=== PATIENT | female | born 1975 | race Caucasian/White ===

== ENCOUNTER → 2016-08-05 | Outpatient (REF) | payer OTHER | LOC: M LAB REF 12:06 | PROVIDERS: ATTEND Physician Assistant | DX: J02.9 Acute pharyngitis, unspecified (principal) ==

== ENCOUNTER 2016-08-07 20:58 | Emergency (ER) | payer OTHER ==
[2016-08-07] MEDS ORDERED: IBUPROFEN 800 MG TAB As Ordered ONE (23:11)
--- NOTE | 2016-08-07 23:25 | EDDOCDS ---
Nurse's Notes [facility] Name: Danielle Alvarez Age: 41 yrs Sex: Female : 1975 Arrival Date: 08/07/2016 Time: 20:58 Bed Triage 1 Private MD: Cheyenne Couch M. Diagnosis: Acute lymphadenitis of face, head and neck-anterior cervical likely due to viral infection Presentation: 08/07 21:13 Presenting complaint: Patient states: Has had severe anterior neck pain bilaterally jo3 that radiates to ears. went to in [place] 2 days ago and had negative strep screen. Adult Sepsis Screening: The patient does not have new or worsening altered mentation. Patient's respiratory rate is less than 22. Systolic blood pressure is greater than 100. Patient has a qSOFA score of 0- Negative Sepsis Screen. Suicide/Homicide risk assessment- the patient denies having any suicidal and/or homicidal ideations and does not present with any other emotional, behavioral or mental health complaints. Status: Patient is not a data services developer or dependent. Transition of care: patient was not received from another setting of care. 21:13 Acuity: MARYAM Level 3 jo3 21:13 Method Of Arrival: Walkin/Carried/Asstd jo3 Triage Assessment: 21:21 General: Appears in no apparent distress, comfortable, Behavior is appropriate for age, jo3 cooperative. Pain: Pain currently is 6 out of 10 on a pain scale. HIV screening NA for this visit Offered previously. Neurological: Level of Consciousness is awake, alert, Oriented to person, place, time. Derm: Skin is pink, warm & dry. 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 Astepro 0.15 % (205.5 mcg) nasal spry 2 sprays 2 times per day 2. Flonase 50 mcg/actuation Nasal spsn 2 sprays once daily 3. Arnuity Ellipta 100 mcg/actuation inhalation dsdv 1 puff once daily 4. meclizine 25 mg Oral tab 3 times per day as needed 5. naproxen 500 mg Oral tab 1 tab 2 times per day as needed, last dose more than a week go 6. Tylenol 500 mg Oral 2 tabs every 4-6 hours as needed 7. albuterol inhaler HFA - PMHx: Hypertension; Migraine Headaches; Seasonal Allergies; Vertigo; - PSHx: Cesearean Section; Knee surgery- Right; Tubal ligation; Cholecystectomy; - Social history: Smoking status: Patient states former smoker of tobacco. No barriers to communication noted, The patient speaks fluent Gambian, Speaks appropriately for age. - Family history: Not pertinent. - : The pt / caregiver states he / she is not on anticoagulants. Home medication list is obtained from the patient. - Exposure Risk Screening:: None identified. Screenin:19 Screening information is obtained from the patient. Fall risk: No risks identified. lf1 Assistance ADL's: requires no assistance with activities of daily living. Abuse/DV Screen: The patient / caregiver reports he/she is: not in a situation that causes fear, pain or injury. Nutritional screening: No deficits noted. Advance Directives: Currently, there is no health care proxy. home support is adequate. Assessment: 22:19 Adult Sepsis Screening: The patient does not have new or worsening altered mentation. lf1 Patient's respiratory rate is less than 22. Systolic blood pressure is greater than 100. Patient has a qSOFA score of 0- Negative Sepsis Screen. General: Appears in no apparent distress. General: Pt says she was seen in the Urgent Care in [place] and was not given a diagnosis or discharge instructions. Rapid strep was negative. . Pain: Location: right jaw and left jaw into neck and ears Pain currently is 5 out of 10 on a pain scale. Pain radiates to right ear and left ear Pain began 2-3 days ago. Neurological: Reports headache. EENT: Reports pain when swallowing. Respiratory: Respiratory effort is even, unlabored. GI: Denies nausea, vomiting. Derm: Skin is normal. 23:22 Reassessment: Patient appears in no apparent distress at this time. General: Appears in jo3 no apparent distress, comfortable, Behavior is appropriate for age, cooperative. Neurological: Level of Consciousness is awake, alert, Oriented to person, place, time. Vital Signs: 20:59 BP 147 / 90; Pulse 75; Resp 18 S; Temp 98.3(O); Pulse Ox 96% on R/A; Weight 118.84 kg gr2 (R); Height 5 ft. 4 in. (162.56 cm) (R); Pain 6/10; 23:22 BP 145 / 92; Pulse 74; Resp 18; Temp 99.2; Pulse Ox 98% on R/A; jo3 20:59 Body Mass Index 44.97 (118.84 kg, 162.56 cm) gr2 Vitals: 20:59 Log In Time: August 07, 2016 at 20:59. gr2 ED Course: 20:59 Patient visited by Tushar Lebron. gr2 20:59 Cheyenne Couch is Private Physician. gr2 20:59 Patient moved to Waiting gr2 21:00 Patient visited by Tushar Lebron. gr2 21:00 Patient moved to Pre RCE gr2 21:16 Triage Initiated jo3 21:22 Patient visited by Ghazala Matute RN. jo3 22:19 Patient visited by Maribell Marrero,SALTY. lf1 22:19 Patient moved to Triage 1 jf3 22:23 Patient visited by Maribell Marrero RN. lf1 22:32 Edgar Be PA-C is PHCP. ar2 22:32 Suresh Ventura DO is Attending Physician. ar2 22:32 Patient visited by Edgar Be PA-C. ar2 22:49 [facility] Payment Agreement was scanned into [employer] and attached to record. gjb 22:50 Cheyenne Couch is Referral Physician. ar2 23:01 Patient visited by Edgar Be PA-C. ar2 23:14 Patient visited by Maribell Marrero RN. lf1 23:22 The patient / caregiver is instructed regarding the plan of care and ED course. jo3 23:22 No IV's were initiated during this patient's visit. No procedures done that require jo3 assistance. Administered Medications: 23:13 Drug: Ibuprofen 800 mg [ibuprofen 800 mg tablet (1 tabs)] Route: PO; lf1 Order Results: There are currently no results for this order. Outcome: 22:51 Discharge ordered by Provider. ar2 23:22 Discharge Assessment: Patient awake, alert and oriented x 3. No cognitive and/or jo3 functional deficits noted. Patient verbalized understanding of disposition instructions. patient administered narcotics - no. The following High Risk Discharge criteria are identified: None. Discharged to home ambulatory. Condition: stable. Discharge instructions given to patient, Instructed on discharge instructions, follow up and referral plans. medication usage, Demonstrated understanding of instructions, medications, Pt was receptive of discharge instructions/ teaching. Prescriptions given X 1. No special radiology studies were completed. Property sent home with patient. 23:24 Patient left the ED. jo3 Signatures: Ghazala MatuteRN RN jo3 Maribell Marrero RN RN lf1 Edgar Be, CARINA PA-Paty ar2 Tushar Lebron gr2 David Sandra RN RN jf3 Qing Powers JAMAAL
--- NOTE | 2016-08-07 23:25 | EDDOCDS ---
Physician Documentation [facility] Name: Danielle Alvarez Age: 41 yrs Sex: Female : 1975 Arrival Date: 08/07/2016 Time: 20:58 Bed Triage 1 Private MD: Cheyenne Couch M. Disposition: 08/07/16 22:51 Discharged to Home/Self Care. Impression: Acute lymphadenitis of face, head and neck - anterior cervical likely due to viral infection. - Condition is Stable. - Discharge Instructions: Lymphadenopathy. - Prescriptions for Ibuprofen 800 mg Oral Tablet - take 1 tablet by ORAL route every 8 hours As needed take with food; 30 tablet. - Medication Reconciliation, Local Pharmacy Hours, Work Release Form - 2 day form. - Follow up: Cheyenne Couch; When: 4 - 5 days; Reason: Recheck today's complaints. Follow up: Emergency Department; When: As needed; Reason: Fever > 102F, Trouble breathing, Worsening of conditions, muffled voice, trouble swallowing. - Problem is new. - Symptoms are unchanged. Historical: - Allergies: Amoxicillin (Vomit); Augmentin (Upset stomach); Macrobid (Hives); - Home Meds: 1. Astepro 0.15 % (205.5 mcg) nasal spry 2 sprays 2 times per day 2. Flonase 50 mcg/actuation Nasal spsn 2 sprays once daily 3. Arnuity Ellipta 100 mcg/actuation inhalation dsdv 1 puff once daily 4. meclizine 25 mg Oral tab 3 times per day as needed 5. naproxen 500 mg Oral tab 1 tab 2 times per day as needed, last dose more than a week go 6. Tylenol 500 mg Oral 2 tabs every 4-6 hours as needed 7. albuterol inhaler HFA - PMHx: Hypertension; Migraine Headaches; Seasonal Allergies; Vertigo; - PSHx: Cesearean Section; Knee surgery- Right; Tubal ligation; Cholecystectomy; - Social history: Smoking status: Patient states former smoker of tobacco. No barriers to communication noted, The patient speaks fluent Polish, Speaks appropriately for age. - Family history: Not pertinent. - : The pt / caregiver states he / she is not on anticoagulants. Home medication list is obtained from the patient. - Exposure Risk Screening:: None identified. 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 4 in. (162.56 cm) (R); Pain 6/10; 23:22 BP 145 / 92; Pulse 74; Resp 18; Temp 99.2; Pulse Ox 98% on R/A; jo3 20:59 Body Mass Index 44.97 (118.84 kg, 162.56 cm) gr2 MDM: 22:43 Financial registration complete. gjb 22:49 [facility] Payment Agreement was scanned into [employer] and attached to record. gjb 22:50 Ibuprofen 800 mg PO once ordered. ar2 Administered Medications: 23:13 Drug: Ibuprofen 800 mg [ibuprofen 800 mg tablet (1 tabs)] Route: PO; lf1 Signatures: Ghazala Matute RN RN jo3 Maribell Marrero RN RN lf1 Edgar Be PA-C PATami ar2 Qing Powers The chart was reviewed and I authenticate all verbal orders and agree with the evaluation and treatment provided.Attachments: 22:49 [facility] Payment Agreement gjb MTDD
--- NOTE | 2016-08-10 00:25 | EDDOCDS ---
Physician Documentation [facility] Name: Danielle Alvarez Age: 41 yrs Sex: Female : 1975 Arrival Date: 08/07/2016 Time: 20:58 Bed Triage 1 Private MD: Cheyenne Couch M. Disposition: 08/07/16 22:51 Discharged to Home/Self Care. Impression: Acute lymphadenitis of face, head and neck - anterior cervical likely due to viral infection. - Condition is Stable. - Discharge Instructions: Lymphadenopathy. - Prescriptions for Ibuprofen 800 mg Oral Tablet - take 1 tablet by ORAL route every 8 hours As needed take with food; 30 tablet. - Medication Reconciliation, Local Pharmacy Hours, Work Release Form - 2 day form. - Follow up: Cheyenne Couch; When: 4 - 5 days; Reason: Recheck today's complaints. Follow up: Emergency Department; When: As needed; Reason: Fever > 102F, Trouble breathing, Worsening of conditions, muffled voice, trouble swallowing. - Problem is new. - Symptoms are unchanged. Historical: - Allergies: Amoxicillin (Vomit); Augmentin (Upset stomach); Macrobid (Hives); - Home Meds: 1. Astepro 0.15 % (205.5 mcg) nasal spry 2 sprays 2 times per day 2. Flonase 50 mcg/actuation Nasal spsn 2 sprays once daily 3. Arnuity Ellipta 100 mcg/actuation inhalation dsdv 1 puff once daily 4. meclizine 25 mg Oral tab 3 times per day as needed 5. naproxen 500 mg Oral tab 1 tab 2 times per day as needed, last dose more than a week go 6. Tylenol 500 mg Oral 2 tabs every 4-6 hours as needed 7. albuterol inhaler HFA - PMHx: Hypertension; Migraine Headaches; Seasonal Allergies; Vertigo; - PSHx: Cesearean Section; Knee surgery- Right; Tubal ligation; Cholecystectomy; - Social history: Smoking status: Patient states former smoker of tobacco. No barriers to communication noted, The patient speaks fluent Bolivian, Speaks appropriately for age. - Family history: Not pertinent. - : The pt / caregiver states he / she is not on anticoagulants. Home medication list is obtained from the patient. - Exposure Risk Screening:: None identified. 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 4 in. (162.56 cm) (R); Pain 6/10; 23:22 BP 145 / 92; Pulse 74; Resp 18; Temp 99.2; Pulse Ox 98% on R/A; jo3 20:59 Body Mass Index 44.97 (118.84 kg, 162.56 cm) gr2 MDM: 22:43 Financial registration complete. gjb 22:49 [facility] Payment Agreement was scanned into [employer] and attached to record. gjb 22:50 Ibuprofen 800 mg PO once ordered. ar2 08/08 12:56 T-Sheet-- Draft Copy was scanned into [employer] and attached to record. gb Administered Medications: 08/07 23:13 Drug: Ibuprofen 800 mg [ibuprofen 800 mg tablet (1 tabs)] Route: PO; lf1 Signatures: Myrna Rivas, Reg Reg gb Ghazala Matute RN RN jo3 Maribell MarreroRN RN lf1 Edgar Be PA-C PA-C ar2 Qing Powers The chart was reviewed and I authenticate all verbal orders and agree with the evaluation and treatment provided.Attachments: 22:49 [facility] Payment Agreement b 08/08 12:56 T-Sheet-- Draft Copy gb Chart Complete MTDD
--- NOTE | 2016-08-10 00:25 | EDDOCDS ---
Physician Documentation [facility] Name: Danielle Alvarez Age: 41 yrs Sex: Female : 1975 Arrival Date: 08/07/2016 Time: 20:58 Bed Triage 1 Private MD: Cheyenne Couch M. Disposition: 08/07/16 22:51 Discharged to Home/Self Care. Impression: Acute lymphadenitis of face, head and neck - anterior cervical likely due to viral infection. - Condition is Stable. - Discharge Instructions: Lymphadenopathy. - Prescriptions for Ibuprofen 800 mg Oral Tablet - take 1 tablet by ORAL route every 8 hours As needed take with food; 30 tablet. - Medication Reconciliation, Local Pharmacy Hours, Work Release Form - 2 day form. - Follow up: Cheyenne Couch; When: 4 - 5 days; Reason: Recheck today's complaints. Follow up: Emergency Department; When: As needed; Reason: Fever > 102F, Trouble breathing, Worsening of conditions, muffled voice, trouble swallowing. - Problem is new. - Symptoms are unchanged. Historical: - Allergies: Amoxicillin (Vomit); Augmentin (Upset stomach); Macrobid (Hives); - Home Meds: 1. Astepro 0.15 % (205.5 mcg) nasal spry 2 sprays 2 times per day 2. Flonase 50 mcg/actuation Nasal spsn 2 sprays once daily 3. Arnuity Ellipta 100 mcg/actuation inhalation dsdv 1 puff once daily 4. meclizine 25 mg Oral tab 3 times per day as needed 5. naproxen 500 mg Oral tab 1 tab 2 times per day as needed, last dose more than a week go 6. Tylenol 500 mg Oral 2 tabs every 4-6 hours as needed 7. albuterol inhaler HFA - PMHx: Hypertension; Migraine Headaches; Seasonal Allergies; Vertigo; - PSHx: Cesearean Section; Knee surgery- Right; Tubal ligation; Cholecystectomy; - Social history: Smoking status: Patient states former smoker of tobacco. No barriers to communication noted, The patient speaks fluent Brazilian, Speaks appropriately for age. - Family history: Not pertinent. - : The pt / caregiver states he / she is not on anticoagulants. Home medication list is obtained from the patient. - Exposure Risk Screening:: None identified. 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 4 in. (162.56 cm) (R); Pain 6/10; 23:22 BP 145 / 92; Pulse 74; Resp 18; Temp 99.2; Pulse Ox 98% on R/A; jo3 20:59 Body Mass Index 44.97 (118.84 kg, 162.56 cm) gr2 MDM: 22:43 Financial registration complete. gjb 22:49 [facility] Payment Agreement was scanned into [employer] and attached to record. gjb 22:50 Ibuprofen 800 mg PO once ordered. ar2 08/08 12:56 T-Sheet-- Draft Copy was scanned into [employer] and attached to record. gb Administered Medications: 08/07 23:13 Drug: Ibuprofen 800 mg [ibuprofen 800 mg tablet (1 tabs)] Route: PO; lf1 Signatures: Myrna Rivas, Reg Reg gb Ghazala Matute RN RN jo3 Maribell MarreroRN RN lf1 Edgar Be PA-C PA-C ar2 Qing Powers The chart was reviewed and I authenticate all verbal orders and agree with the evaluation and treatment provided.Attachments: 22:49 [facility] Payment Agreement b 08/08 12:56 T-Sheet-- Draft Copy gb Chart Complete MTDD
--- NOTE | 2016-08-10 00:25 | EDDOCDS ---
Nurse's Notes [facility] Name: Danielle Alvarez Age: 41 yrs Sex: Female : 1975 Arrival Date: 08/07/2016 Time: 20:58 Bed Triage 1 Private MD: Cheyenne Couch M. Diagnosis: Acute lymphadenitis of face, head and neck-anterior cervical likely due to viral infection Presentation: 08/07 21:13 Presenting complaint: Patient states: Has had severe anterior neck pain bilaterally jo3 that radiates to ears. went to in [place] 2 days ago and had negative strep screen. Adult Sepsis Screening: The patient does not have new or worsening altered mentation. Patient's respiratory rate is less than 22. Systolic blood pressure is greater than 100. Patient has a qSOFA score of 0- Negative Sepsis Screen. Suicide/Homicide risk assessment- the patient denies having any suicidal and/or homicidal ideations and does not present with any other emotional, behavioral or mental health complaints. Status: Patient is not a service liaison representative or dependent. Transition of care: patient was not received from another setting of care. 21:13 Acuity: MARYAM Level 3 jo3 21:13 Method Of Arrival: Walkin/Carried/Asstd jo3 Triage Assessment: 21:21 General: Appears in no apparent distress, comfortable, Behavior is appropriate for age, jo3 cooperative. Pain: Pain currently is 6 out of 10 on a pain scale. HIV screening NA for this visit Offered previously. Neurological: Level of Consciousness is awake, alert, Oriented to person, place, time. Derm: Skin is pink, warm & dry. 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 Astepro 0.15 % (205.5 mcg) nasal spry 2 sprays 2 times per day 2. Flonase 50 mcg/actuation Nasal spsn 2 sprays once daily 3. Arnuity Ellipta 100 mcg/actuation inhalation dsdv 1 puff once daily 4. meclizine 25 mg Oral tab 3 times per day as needed 5. naproxen 500 mg Oral tab 1 tab 2 times per day as needed, last dose more than a week go 6. Tylenol 500 mg Oral 2 tabs every 4-6 hours as needed 7. albuterol inhaler HFA - PMHx: Hypertension; Migraine Headaches; Seasonal Allergies; Vertigo; - PSHx: Cesearean Section; Knee surgery- Right; Tubal ligation; Cholecystectomy; - Social history: Smoking status: Patient states former smoker of tobacco. No barriers to communication noted, The patient speaks fluent Kazakh, Speaks appropriately for age. - Family history: Not pertinent. - : The pt / caregiver states he / she is not on anticoagulants. Home medication list is obtained from the patient. - Exposure Risk Screening:: None identified. Screenin:19 Screening information is obtained from the patient. Fall risk: No risks identified. lf1 Assistance ADL's: requires no assistance with activities of daily living. Abuse/DV Screen: The patient / caregiver reports he/she is: not in a situation that causes fear, pain or injury. Nutritional screening: No deficits noted. Advance Directives: Currently, there is no health care proxy. home support is adequate. Assessment: 22:19 Adult Sepsis Screening: The patient does not have new or worsening altered mentation. lf1 Patient's respiratory rate is less than 22. Systolic blood pressure is greater than 100. Patient has a qSOFA score of 0- Negative Sepsis Screen. General: Appears in no apparent distress. General: Pt says she was seen in the Urgent Care in [place] and was not given a diagnosis or discharge instructions. Rapid strep was negative. . Pain: Location: right jaw and left jaw into neck and ears Pain currently is 5 out of 10 on a pain scale. Pain radiates to right ear and left ear Pain began 2-3 days ago. Neurological: Reports headache. EENT: Reports pain when swallowing. Respiratory: Respiratory effort is even, unlabored. GI: Denies nausea, vomiting. Derm: Skin is normal. 23:22 Reassessment: Patient appears in no apparent distress at this time. General: Appears in jo3 no apparent distress, comfortable, Behavior is appropriate for age, cooperative. Neurological: Level of Consciousness is awake, alert, Oriented to person, place, time. Vital Signs: 20:59 BP 147 / 90; Pulse 75; Resp 18 S; Temp 98.3(O); Pulse Ox 96% on R/A; Weight 118.84 kg gr2 (R); Height 5 ft. 4 in. (162.56 cm) (R); Pain 6/10; 23:22 BP 145 / 92; Pulse 74; Resp 18; Temp 99.2; Pulse Ox 98% on R/A; jo3 20:59 Body Mass Index 44.97 (118.84 kg, 162.56 cm) gr2 Vitals: 20:59 Log In Time: August 07, 2016 at 20:59. gr2 ED Course: 20:59 Patient visited by Tushar Lebron. gr2 20:59 Cheyenne Couch is Private Physician. gr2 20:59 Patient moved to Waiting gr2 21:00 Patient visited by Tushar Lebron. gr2 21:00 Patient moved to Pre RCE gr2 21:16 Triage Initiated jo3 21:22 Patient visited by Ghazala Matute RN. jo3 22:19 Patient visited by Maribell Marrero,SALTY. lf1 22:19 Patient moved to Triage 1 jf3 22:23 Patient visited by Maribell Marrero,SALTY. lf1 22:32 Edgar Be PA-C is PHCP. ar2 22:32 Suresh Ventura DO is Attending Physician. ar2 22:32 Patient visited by Edgar Be PA-C. ar2 22:49 [facility] Payment Agreement was scanned into [employer] and attached to record. gjb 22:50 Cheyenne Couch is Referral Physician. ar2 23:01 Patient visited by Edgar Be PA-C. ar2 23:14 Patient visited by Maribell Marrero RN. lf1 23:22 The patient / caregiver is instructed regarding the plan of care and ED course. jo3 23:22 No IV's were initiated during this patient's visit. No procedures done that require jo3 assistance. 08/08 12:56 T-Sheet-- Draft Copy was scanned into [employer] and attached to record. gb Administered Medications: 08/07 23:13 Drug: Ibuprofen 800 mg [ibuprofen 800 mg tablet (1 tabs)] Route: PO; lf1 Order Results: There are currently no results for this order. Outcome: 22:51 Discharge ordered by Provider. ar2 23:22 Discharge Assessment: Patient awake, alert and oriented x 3. No cognitive and/or jo3 functional deficits noted. Patient verbalized understanding of disposition instructions. patient administered narcotics - no. The following High Risk Discharge criteria are identified: None. Discharged to home ambulatory. Condition: stable. Discharge instructions given to patient, Instructed on discharge instructions, follow up and referral plans. medication usage, Demonstrated understanding of instructions, medications, Pt was receptive of discharge instructions/ teaching. Prescriptions given X 1. No special radiology studies were completed. Property sent home with patient. 23:24 Patient left the ED. jo3 Signatures: Myrna Rivas, Reg Reg Ghazala HarrellRN RN jo3 Maribell MarreroRN RN lf1 Edgar Be, PA-Paty PA-Paty ar2 Tushar Lebron gr2 David Sandra RN RN jf3 Qing Powers Chart Complete JAMAAL
== END 2016-08-07 23:24 | disposition home or self-care (01) ==
LOC: M ED 20:58
DX: R59.0 Localized enlarged lymph nodes (principal); I10 Essential (primary) hypertension; J30.2 Other seasonal allergic rhinitis; R42 Dizziness and giddiness; Z79.51 Long term (current) use of inhaled steroids; Z79.899 Other long term (current) drug therapy; Z88.0 Allergy status to penicillin; Z88.1 Allergy status to other antibiotic agents; Z87.891 Personal history of nicotine dependence

== ENCOUNTER → 2016-08-27 | Outpatient (CLI) | payer OTHER ==
--- NOTE | 2016-08-27 17:07 | REP ---
Clinical: Cough . Comparison: 06/26/2016 . Technique: PA and lateral. Findings: The mediastinum and cardiac silhouette are normal. The lung laughlin are clear and without acute consolidation, effusion, or pneumothorax. The skeletal structures are intact and normal. Impression: 1. No acute cardiopulmonary process. Signed by Srinivas Ernandez MD 08/27/2016 04:59 P
[2016-08-27 20:00] LABS: BASO # 0.1 K/mm3 (0.0-0.2); BASO % 1.1 % (0.0-1.0); EOS # 0.5 K/mm3 (0.0-0.50); EOS % 7.6 % (0.0-3.0); LARGE UNSTAINED CELL # 0.2 K/mm3 (0.0-0.4); LARGE UNSTAINED CELL % 3.4 % (0.0-4.0); LYMPH # 2.8 K/mm3 (1.5-4.5); LYMPH % 39.9 % (24.0-44.0); MEAN CORPUSCULAR HEMOGLOBIN 28.3 pg (27.0-33.0); MEAN CORPUSCULAR HGB CONC 33.2 g/dl (32.0-36.5); MEAN CORPUSCULAR VOLUME 85.4 fl (80.0-96.0); MONO # 0.3 K/mm3 (0.0-0.8); MONO % 4.5 % (0.0-5.0); NEUTROPHILS % 43.5 % (36.0-66.0); PLATELET COUNT, AUTOMATED 367 k/mm3 (150-450); RED CELL DISTRIBUTION WIDTH 13.8 % (11.5-14.5)
[2016-08-28 07:41] LABS: CONTROL LINE MONO RF C INT CTR LINE PRESENT
== END ==
LOC: M ADAMS 16:51
PROVIDERS: ATTEND Physician Assistant Medical
DX: J20.9 Acute bronchitis, unspecified (principal)

== ENCOUNTER → 2016-08-31 | Outpatient (CLI) | payer OTHER ==
--- NOTE | 2016-09-03 13:57 | SLEEPCENT ---
DATE OF STUDY: 08/31/2016 ORDERING PROVIDER: Alaina Alexander NP Nocturnal polysomnography was performed for the titration of pressure therapy in this patient with obstructive sleep apnea syndrome, apnea-hypopnea index of 18. For testing, the patient was fit with a ResMed Quattro full face mask of small size. 4 cm of water pressure were applied to the circuit, and the lights were extinguished. 7 hours and 49 minutes of data were reviewed. There were 392 minutes of sleep identified. Sleep latency was prolonged at 57 minutes. Rapid eye movement (REM) sleep onset was short at 37 minutes. Sleep architecture showed evidence of REM rebound with a sleep efficiency of 84% and 142% of REM for predicted. The patient's electrocardiogram (EKG) showed a sinus rhythm with an average heart rate of 70 beats per minute. Electroencephalogram (EEG) showed normal waveforms for awake and sleep. Best sleep was seen on a continuous positive airway pressure (CPAP) of +10, with which pressure the patient slept through REM without respiratory event or oxygen desaturation. There was minimal limb activity, and remaining measures of sleep physiology were normal. IMPRESSION: Obstructive sleep apnea syndrome (G47.33). RECOMMENDATION: Nightly use of pressure therapy at 10 cm of water.
== END ==
LOC: M SLEEP 19:45
PROVIDERS: ATTEND Nurse Practitioner Adult Health
DX: G47.33 Obstructive sleep apnea (adult) (pediatric) (principal)

== ENCOUNTER 2016-09-19 17:15 | Emergency (ER) | payer OTHER ==
[~2016-09-19] VITALS: Ht 162.6 cm; Wt 115.2 kg
[2016-09-19] MEDS ORDERED: ALBU17IN (17:33)
[2016-09-19] MEDS ORDERED: LORA10TA2 (17:33)
[2016-09-19] MEDS ORDERED: ARNU1INH3 (17:33)
[2016-09-19] MEDS ORDERED: LIPI10TA PO (17:33)
[2016-09-19] MEDS ORDERED: ASPIRIN 325 MG TAB PO ONE (18:15)
[2016-09-19 18:33] LABS: BASO # 0.1 K/mm3 (0.0-0.2); BASO % 0.8 % (0.0-1.0); EOS # 0.4 K/mm3 (0.0-0.50); EOS % 4.9 % (0.0-3.0); LARGE UNSTAINED CELL # 0.2 K/mm3 (0.0-0.4); LARGE UNSTAINED CELL % 2.5 % (0.0-4.0); LYMPH # 3.1 K/mm3 (1.5-4.5); LYMPH % 31.8 % (24.0-44.0); MEAN CORPUSCULAR HEMOGLOBIN 28.2 pg (27.0-33.0); MEAN CORPUSCULAR HGB CONC 33.1 g/dl (32.0-36.5); MEAN CORPUSCULAR VOLUME 85.1 fl (80.0-96.0); MONO # 0.4 K/mm3 (0.0-0.8); MONO % 3.8 % (0.0-5.0); NEUTROPHILS # 5.1 K/mm3 (1.8-7.7); NEUTROPHILS % 56.3 % (36.0-66.0); PLATELET COUNT, AUTOMATED 377 k/mm3 (150-450); RED CELL DISTRIBUTION WIDTH 13.7 % (11.5-14.5); WHITE BLOOD COUNT 9.1 K/mm3 (4.0-10.0)
[2016-09-19 18:47] LABS: CONTROL LINE HCG INT CTR LINE PRESENT
[2016-09-19 18:59] LABS: ANION GAP 6 MEQ/L (8-16); BLOOD UREA NITROGEN 9 MG/DL (7-18); CALCIUM LEVEL 9.1 MG/DL (8.5-10.1); CARBON DIOXIDE LEVEL 28 MEQ/L (21-32); CHLORIDE LEVEL 104 MEQ/L (98-107); GLOMERULAR FILTRATION RATE > 60.0 (>60); GLUCOSE, FASTING 96 MG/DL (70-105); SODIUM LEVEL 138 MEQ/L (136-145)
--- NOTE | 2016-09-19 21:08 | REP ---
CHEST, TWO VIEWS: HISTORY: Chest pain. COMPARISON: 07/30/2015 FINDINGS: The superior mediastinal structures are midline. The cardiac silhouette is unremarkable in size, shape and position. The diaphragmatic surfaces of the lungs are regular and the costophrenic angles are clear. The pulmonary laughlin are clear. The imaged osseous structures are intact. IMPRESSION: There is no acute cardiopulmonary disease. No significant change from the prior exam. Signed by Rodolfo Navarro DO 09/20/2016 11:45 A
[2016-09-20 00:18] VITALS: BP 132/78
--- NOTE | 2016-09-20 08:54 | ECGEPIP ---
Stationary ECG Study [facility] - ED Test Date: 2016-09-19 Pat Name: ADRI DUARTE Department: Room: - Gender: F Food Supervisor: jjeremías : 1975 Requested By: Jesica Cuellar Order Number: [id number] Reading MD: Jesica Cuellar Measurements Intervals [place] Rate: 71 P: 18 ND: 150 QRS: -10 QRSD: 90 T: 2 QT: 383 QTc: 417 Interpretive Statements SINUS RHYTHM NO PRIOR FOR COMPARISON Electronically Signed On 09-20-2016 8:53:38 EDT by Jesica Cuellar
[2016-09-21] MEDS ORDERED: ZOFR4TAB3 PO (17:43)
== END 2016-09-20 00:20 | disposition home or self-care (01) ==
LOC: M ED 18:53
DX: R00.2 Palpitations (principal); R07.9 Chest pain, unspecified; J45.909 Unspecified asthma, uncomplicated; Z90.49 Acquired absence of other specified parts of digestive tract; Z87.891 Personal history of nicotine dependence; Z83.3 Family history of diabetes mellitus; Z79.51 Long term (current) use of inhaled steroids; Z79.899 Other long term (current) drug therapy

== ENCOUNTER 2016-09-21 14:02 | Emergency (ER) | payer OTHER ==
[~2016-09-21] VITALS: Ht 162.6 cm; Wt 115.2 kg
[~2016-09-21 14:02] MED LIST: ALBU17IN; ARNU1INH3; LIPI10TA PO; LORA10TA2
[2016-09-21] MEDS ORDERED: NS 1,000 ML IV ONE (16:45)
[2016-09-21] MEDS ORDERED: ONDANSETRON 4MG/2ML VIAL (J2405) IV ONE (16:45)
[2016-09-21 16:59] LABS: BASO % 0.2 % (0.0-1.0); EOS # 0.1 K/mm3 (0.0-0.50); EOS % 0.6 % (0.0-3.0); LARGE UNSTAINED CELL # 0.1 K/mm3 (0.0-0.4); LARGE UNSTAINED CELL % 0.8 % (0.0-4.0); MEAN CORPUSCULAR HEMOGLOBIN 27.5 pg (27.0-33.0); MEAN CORPUSCULAR HGB CONC 32.4 g/dl (32.0-36.5); MEAN CORPUSCULAR VOLUME 84.9 fl (80.0-96.0); MONO # 0.4 K/mm3 (0.0-0.8); MONO % 2.8 % (0.0-5.0); NEUTROPHILS # 12.6 K/mm3 (1.8-7.7); NEUTROPHILS % 89.6 % (36.0-66.0); PLATELET COUNT, AUTOMATED 369 k/mm3 (150-450); RED CELL DISTRIBUTION WIDTH 13.6 % (11.5-14.5)
[2016-09-21 17:19] LABS: ALBUMIN 3.5 GM/DL (3.2-5.2); ALBUMIN/GLOBULIN RATIO 0.95 (1.00-1.93); ALKALINE PHOSPHATASE 76 U/L (45-117); ALT/SGPT 30 U/L (12-78); AMYLASE 53 U/L (25-115); ANION GAP 9 MEQ/L (8-16); AST/SGOT 20 U/L (15-37); BILIRUBIN,DIRECT 0.1 MG/DL (0.0-0.2); BILIRUBIN,TOTAL 0.4 MG/DL (0.2-1.0); BLOOD UREA NITROGEN 14 MG/DL (7-18); CALCIUM LEVEL 8.6 MG/DL (8.5-10.1); CARBON DIOXIDE LEVEL 26 MEQ/L (21-32); CHLORIDE LEVEL 104 MEQ/L (98-107); CREATININE FOR GFR 0.94 MG/DL (0.55-1.02); GLOMERULAR FILTRATION RATE > 60.0 (>60); GLUCOSE, FASTING 130 MG/DL (70-105); POTASSIUM SERUM 4.2 MEQ/L (3.5-5.1); SODIUM LEVEL 139 MEQ/L (136-145); TOTAL PROTEIN 7.2 GM/DL (6.4-8.2)
[2016-09-21] MEDS ORDERED: ZOFR4TAB3 PO (17:43)
[2016-09-21 18:01] VITALS: BP 127/68
--- NOTE | 2016-09-21 20:06 | ECGEPIP ---
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
--- NOTE | 2016-09-22 08:54 | REP ---
Abdominal series: Three views. History: Nausea and vomiting. Comparison study September 19, 2016. Findings: Upright chest radiograph shows EKG monitoring electrodes. The lungs are well inflated and clear. There is no evidence of infiltrate or free subdiaphragmatic air. Heart size is normal. Supine and erect views of the abdomen show clips in right upper quadrant. The bowel gas pattern is normal. Psoas margins and flank stripes are intact. No mass, organomegaly, or pathologic calcification is seen. Impression: Negative abdominal series. Signed by Basil Smith MD 09/22/2016 09:54 A
== END 2016-09-21 18:07 | disposition home or self-care (01) ==
LOC: M ED 15:39
DX: R11.2 Nausea with vomiting, unspecified (principal)
CPT/HCPCS: 36415; 74022; 80048; 80076; 82150; 83690; 84702; 85025; 93005; 96374; 99283; J2405

== ENCOUNTER → 2016-10-29 | Outpatient (REF) | payer OTHER ==
[~2016-10-29] MED LIST changes: +ZOFR4TAB3 PO
[2016-10-29 14:03] LABS: BASO # 0.1 K/mm3 (0.0-0.2); BASO % 0.7 % (0.0-1.0); EOS # 0.5 K/mm3 (0.0-0.50); EOS % 6.7 % (0.0-3.0); LARGE UNSTAINED CELL # 0.2 K/mm3 (0.0-0.4); LARGE UNSTAINED CELL % 2.1 % (0.0-4.0); LYMPH # 3.3 K/mm3 (1.5-4.5); MEAN CORPUSCULAR HEMOGLOBIN 27.7 pg (27.0-33.0); MEAN CORPUSCULAR HGB CONC 32.2 g/dl (32.0-36.5); MEAN CORPUSCULAR VOLUME 86.2 fl (80.0-96.0); MONO # 0.4 K/mm3 (0.0-0.8); MONO % 4.8 % (0.0-5.0); NEUTROPHILS # 3.8 K/mm3 (1.8-7.7); NEUTROPHILS % 46.6 % (36.0-66.0); PLATELET COUNT, AUTOMATED 374 k/mm3 (150-450); RED CELL DISTRIBUTION WIDTH 13.6 % (11.5-14.5); WHITE BLOOD COUNT 8.1 K/mm3 (4.0-10.0)
[2016-10-29 14:32] LABS: IMMUNOGLOBULIN G 985 MG/DL (681-1648); IMMUNOGLOBULIN M 168 MG/DL (40-230)
[2016-11-01 00:07] LABS: IgG SERUM (part of Subclasses) 902 mg/dL (700-1600); IgG Subclass 1 434 mg/dL (422-1292); IgG Subclass 2 359 mg/dL (117-747); IgG Subclass 3 70 mg/dL (41-129); IgG Subclass 4 18 mg/dL (1-291)
== END ==
LOC: M SFHCPLAZ 10:14
PROVIDERS: ATTEND Internal Medicine Infectious Disease
DX: B99.9 Unspecified infectious disease (principal); L81.8 Other specified disorders of pigmentation

== ENCOUNTER → 2017-03-17 | Outpatient (REF) | payer OTHER | LOC: M LAB REF 19:50 | PROVIDERS: ATTEND Dermatology | DX: C43.9 Malignant melanoma of skin, unspecified (principal) ==

== ENCOUNTER → 2017-04-23 | Outpatient (REF) | payer OTHER | LOC: M SFHCLERA 09:58 | PROVIDERS: ATTEND Dermatology | DX: L72.11 Pilar cyst (principal) ==

== ENCOUNTER 2017-07-07 17:47 | Emergency (ER) | payer OTHER ==
[2017-07-07] MEDS: CEFDINIR 300 MG CAP (OMNICEF) PO (20:53)
== END 2017-07-07 20:57 | disposition home or self-care (01) ==
LOC: M ED 17:47
DX: H66.012 Acute suppurative otitis media with spontaneous rupture of ear drum, left ear (principal); J45.909 Unspecified asthma, uncomplicated; Z87.891 Personal history of nicotine dependence; Z79.51 Long term (current) use of inhaled steroids; Z79.899 Other long term (current) drug therapy; Z88.0 Allergy status to penicillin; Z88.1 Allergy status to other antibiotic agents
CPT/HCPCS: 99283

== ENCOUNTER 2017-07-30 16:30 | Emergency (ER) | payer OTHER ==
[2017-07-30] MEDS: KETOROLAC 60 MG/2 ML VIAL (J1885) IM (18:48)
== END 2017-07-30 20:21 | disposition home or self-care (01) ==
LOC: M ED 16:30
DX: S39.012A Strain of muscle, fascia and tendon of lower back, initial encounter (principal); X58.XXXA Exposure to other specified factors, initial encounter; Y92.89 Other specified places as the place of occurrence of the external cause; J45.909 Unspecified asthma, uncomplicated; Z87.891 Personal history of nicotine dependence; Z88.0 Allergy status to penicillin; Z88.1 Allergy status to other antibiotic agents; Z79.899 Other long term (current) drug therapy
CPT/HCPCS: J1885

== ENCOUNTER 2017-08-07 20:05 | Emergency (ER) | payer OTHER ==
[2017-08-07 22:04] LABS: BASO # 0.1 10^3/uL (0.0-0.2); BASO % 0.7 % (0.0-1.0); EOS # 0.4 10^3/uL (0.0-0.50); EOS % 3.4 % (0.0-3.0); HEMATOCRIT 42.9 % (36.0-47.0); HEMOGLOBIN 13.6 g/dl (12.0-16.0); IMMATURE GRANULOCYTE % 0.2 % (0-0); LYMPH # 3.1 10^3/uL (1.5-4.5); LYMPH % 30.8 % (24.0-44.0); MEAN CORPUSCULAR HEMOGLOBIN 26.6 pg (27.0-33.0); MEAN CORPUSCULAR HGB CONC 31.7 g/dl (32.0-36.5); MEAN CORPUSCULAR VOLUME 83.8 fl (80.0-96.0); MONO # 0.6 10^3/uL (0.0-0.8); MONO % 6.1 % (0.0-5.0); NEUTROPHILS % 58.8 % (36.0-66.0); PLATELET COUNT, AUTOMATED 360 10^3/uL (150-450); RED BLOOD COUNT 5.12 10^6/uL (4.00-5.40); WHITE BLOOD COUNT 10.2 10^3/uL (4.0-10.0)
[2017-08-07 22:09] LABS: KETONE, URINE AUTO RFX NEGATIVE (NEGATIVE); NITRITE, URINE AUTO RFX NEGATIVE (NEGATIVE); RBC, URINE AUTO RFX 5 /HPF (0-3); SPECIFIC GRAVITY UR AUTO RFX 1.012 (1.002-1.035); SQUAM EPITHELIAL CELL UR AURFX 4 /HPF (0-6); WBC, URINE AUTO RFX 2 /HPF (0-3); YEAST LIKE CELL URINE AUTO RFX SMALL
[2017-08-07 22:12] LABS: LEUKOCYTE ESTERASE UR AUTO RFX 1+ (NEGATIVE)
[2017-08-07 22:22] LABS: ALBUMIN 3.9 GM/DL (3.2-5.2); ALBUMIN/GLOBULIN RATIO 1.08 (1.00-1.93); ALKALINE PHOSPHATASE 72 U/L (45-117); ALT/SGPT 26 U/L (12-78); ANION GAP 5 MEQ/L (8-16); AST/SGOT 18 U/L (7-37); BILIRUBIN,DIRECT < 0.1 MG/DL (0.0-0.2); BILIRUBIN,TOTAL 0.5 MG/DL (0.2-1.0); BLOOD UREA NITROGEN 10 MG/DL (7-18); CALCIUM LEVEL 8.9 MG/DL (8.5-10.1); CARBON DIOXIDE LEVEL 28 MEQ/L (21-32); CHLORIDE LEVEL 107 MEQ/L (98-107); CREATININE FOR GFR 0.84 MG/DL (0.55-1.30); GLOMERULAR FILTRATION RATE > 60.0 (>58); GLUCOSE, FASTING 85 MG/DL (70-100); POTASSIUM SERUM 4.1 MEQ/L (3.5-5.1); SODIUM LEVEL 140 MEQ/L (136-145); TOTAL PROTEIN 7.5 GM/DL (6.4-8.2)
[2017-08-07 23:03] LABS: CONTROL LINE MONO RF C INT CTR LINE PRESENT; MONO REFLEX EBV COMP NEGATIVE (NEGATIVE)
[2017-08-10 00:07] LABS: EBV VIRAL CAPSID AG IgG >600.0 U/mL (0.0-17.9)
[2017-08-10 00:07] LABS: EBV VIRAL CAPSID AG IgM <36.0 U/mL (0.0-35.9)
== END 2017-08-07 23:39 | disposition home or self-care (01) ==
LOC: M ED 20:05
DX: J02.9 Acute pharyngitis, unspecified (principal); I10 Essential (primary) hypertension; J45.909 Unspecified asthma, uncomplicated
CPT/HCPCS: 80076

== ENCOUNTER 2017-08-15 20:31 | Emergency (ER) | payer OTHER ==
[2017-08-15 22:08] LABS: INFLUENZA A AMPLIFICATION NEGATIVE (NEGATIVE); INFLUENZA B AMPLIFICATION NEGATIVE (NEGATIVE)
[2017-08-15] MEDS: AZITHROMYCIN 250 MG TAB PO (22:30)
== END 2017-08-15 22:56 | disposition home or self-care (01) ==
LOC: M ED 20:31
DX: J06.9 Acute upper respiratory infection, unspecified (principal); I10 Essential (primary) hypertension; J45.909 Unspecified asthma, uncomplicated; Z88.0 Allergy status to penicillin; Z88.1 Allergy status to other antibiotic agents; Z79.899 Other long term (current) drug therapy
CPT/HCPCS: 71046

== ENCOUNTER 2017-08-17 18:52 | Emergency (ER) | payer OTHER ==
[2017-08-17 20:04] LABS: INFLUENZA A AMPLIFICATION NEGATIVE (NEGATIVE); INFLUENZA B AMPLIFICATION NEGATIVE (NEGATIVE)
[2017-08-17] MEDS: IBUPROFEN 800 MG TAB PO (21:00)
[2017-08-17] MEDS: predniSONE 20 MG TAB PO (21:00)
== END 2017-08-17 21:06 | disposition home or self-care (01) ==
LOC: M ED 18:52
DX: J20.9 Acute bronchitis, unspecified (principal); I10 Essential (primary) hypertension; R01.1 Cardiac murmur, unspecified; J45.909 Unspecified asthma, uncomplicated; F32.9 Major depressive disorder, single episode, unspecified; N80.9 Endometriosis, unspecified; Z87.891 Personal history of nicotine dependence; Z79.2 Long term (current) use of antibiotics; Z88.0 Allergy status to penicillin; Z88.1 Allergy status to other antibiotic agents
CPT/HCPCS: 87502

== ENCOUNTER 2017-08-26 19:50 | Emergency (ER) | payer OTHER ==
[2017-08-26] MEDS: AZITHROMYCIN 250 MG TAB PO (21:35)
== END 2017-08-26 21:52 | disposition home or self-care (01) ==
LOC: M ED 19:50
DX: J02.9 Acute pharyngitis, unspecified (principal); I10 Essential (primary) hypertension; J44.9 Chronic obstructive pulmonary disease, unspecified; Z87.891 Personal history of nicotine dependence; Z88.0 Allergy status to penicillin; Z88.1 Allergy status to other antibiotic agents; Z79.899 Other long term (current) drug therapy
CPT/HCPCS: 99283

== ENCOUNTER 2017-08-31 19:17 | Emergency (ER) | payer OTHER ==
[2017-08-31 20:44] LABS: BASO # 0.1 10^3/uL (0.0-0.2); BASO % 0.4 % (0.0-1.0); EOS # 0.2 10^3/uL (0.0-0.50); EOS % 1.3 % (0.0-3.0); HEMATOCRIT 43.5 % (36.0-47.0); HEMOGLOBIN 13.9 g/dl (12.0-16.0); IMMATURE GRANULOCYTE % 0.3 % (0-3.0); LYMPH # 2.3 10^3/uL (1.5-4.5); LYMPH % 19.3 % (24.0-44.0); MEAN CORPUSCULAR HEMOGLOBIN 26.6 pg (27.0-33.0); MEAN CORPUSCULAR VOLUME 83.2 fl (80.0-96.0); MONO # 0.8 10^3/uL (0.0-0.8); MONO % 6.6 % (0.0-5.0); NEUTROPHILS # 8.6 10^3/uL (1.8-7.7); NEUTROPHILS % 72.1 % (36.0-66.0); PLATELET COUNT, AUTOMATED 372 10^3/uL (150-450); RED BLOOD COUNT 5.23 10^6/uL (4.00-5.40); RED CELL DISTRIBUTION WIDTH 16.4 % (11.5-14.5); WHITE BLOOD COUNT 11.9 10^3/uL (4.0-10.0)
[2017-08-31 21:08] LABS: KETONE, URINE AUTO RFX NEGATIVE (NEGATIVE); LEUKOCYTE ESTERASE UR AUTO RFX NEGATIVE (NEGATIVE); NITRITE, URINE AUTO RFX NEGATIVE (NEGATIVE); RBC, URINE AUTO RFX 1 /HPF (0-3); SPECIFIC GRAVITY UR AUTO RFX 1.003 (1.002-1.035); SQUAM EPITHELIAL CELL UR AURFX 2 /HPF (0-6); WBC, URINE AUTO RFX 0 /HPF (0-3)
[2017-08-31 21:09] LABS: INR 0.96; PROTHROMBIN TIME 12.9 SECONDS (12.4-14.5)
[2017-08-31 21:10] LABS: PARTIAL THROMBOPLASTIN TIME 30.2 SECONDS (26.8-37.9)
[2017-08-31 21:12] LABS: D-DIMER QUANT 342.2 ng/ml (<500)
[2017-08-31 21:15] LABS: CONTROL LINE HCG INT CTR LINE PRESENT; HCG, SERUM QUALITATIVE NEGATIVE (NEGATIVE)
[2017-08-31 21:32] LABS: ALBUMIN 3.6 GM/DL (3.2-5.2); ALBUMIN/GLOBULIN RATIO 0.88 (1.00-1.93); ALKALINE PHOSPHATASE 71 U/L (45-117); ALT/SGPT 21 U/L (12-78); ANION GAP 8 MEQ/L (8-16); AST/SGOT 11 U/L (7-37); BILIRUBIN,DIRECT < 0.1 MG/DL (0.0-0.2); BILIRUBIN,TOTAL 0.5 MG/DL (0.2-1.0); BLOOD UREA NITROGEN 8 MG/DL (7-18); CALCIUM LEVEL 9.5 MG/DL (8.5-10.1); CARBON DIOXIDE LEVEL 25 MEQ/L (21-32); CHLORIDE LEVEL 105 MEQ/L (98-107); CREATININE FOR GFR 0.82 MG/DL (0.55-1.30); FREE T4 0.91 NG/DL (0.76-1.46); GLOMERULAR FILTRATION RATE > 60.0 (>58); GLUCOSE, FASTING 88 MG/DL (70-100); LIPASE 108 U/L (73-393); POTASSIUM SERUM 3.9 MEQ/L (3.5-5.1); SODIUM LEVEL 138 MEQ/L (136-145); THYROID STIMULATING HORMONE 0.781 uIU/ML (0.358-3.740); TOTAL PROTEIN 7.7 GM/DL (6.4-8.2)
[2017-08-31 23:24] LABS: CHLAMYDIA DNA AMPLIFICATION NEGATIVE (NEGATIVE); GC DNA AMPLIFICATION NEGATIVE (NEGATIVE)
== END 2017-08-31 22:55 | disposition home or self-care (01) ==
LOC: M ED 19:17
DX: R07.9 Chest pain, unspecified (principal); D72.829 Elevated white blood cell count, unspecified; R91.8 Other nonspecific abnormal finding of lung field; R94.31 Abnormal electrocardiogram [ECG] [EKG]; I10 Essential (primary) hypertension; J45.909 Unspecified asthma, uncomplicated; F33.9 Major depressive disorder, recurrent, unspecified; N80.9 Endometriosis, unspecified; R01.1 Cardiac murmur, unspecified; G47.30 Sleep apnea, unspecified; Z86.19 Personal history of other infectious and parasitic diseases; Z87.891 Personal history of nicotine dependence
CPT/HCPCS: 71046

== ENCOUNTER → 2017-09-01 | Outpatient (REF) | payer OTHER ==
[2017-09-01 12:55] LABS: C REACTIVE PROTEIN QUANTITATIV 5.34 MG/DL (0.00-0.30)
[2017-09-01 12:55] LABS: RHEUMATOID FACTOR QUANT < 10.0 IU/ML (0-15.0)
[2017-09-01 13:39] LABS: HIV 1&2 SCREEN CENTAUR NEGATIVE (NEGATIVE)
[2017-09-01 14:02] LABS: ERYTHROCYTE SEDIMENTATION RATE 27 mm/hr (0-20)
[2017-09-03 00:06] LABS: ANTINUCLEAR ANTIBODIES DIRECT Negative (Negative); Lyme Disease IgG/IgM Antibodie <0.91 ISR (0.00-0.90); Lyme Disease IgM Ab Quantitati <0.80 index (0.00-0.79)
== END ==
LOC: M LABDRWAD 12:11
DX: M25.50 Pain in unspecified joint (principal); B99.9 Unspecified infectious disease

== ENCOUNTER → 2017-09-18 | Outpatient (REF) | payer OTHER ==
[2017-09-18 15:42] LABS: BASO # 0.1 10^3/uL (0.0-0.2); BASO % 1.1 % (0.0-1.0); EOS # 0.5 10^3/uL (0.0-0.50); EOS % 8.1 % (0.0-3.0); HEMATOCRIT 37.2 % (36.0-47.0); IMMATURE GRANULOCYTE % 0.2 % (0-3.0); LYMPH # 2.7 10^3/uL (1.5-4.5); LYMPH % 43.2 % (24.0-44.0); MEAN CORPUSCULAR HEMOGLOBIN 27.3 pg (27.0-33.0); MEAN CORPUSCULAR HGB CONC 32.3 g/dl (32.0-36.5); MEAN CORPUSCULAR VOLUME 84.7 fl (80.0-96.0); MONO # 0.5 10^3/uL (0.0-0.8); MONO % 7.4 % (0.0-5.0); NEUTROPHILS # 2.5 10^3/uL (1.8-7.7); PLATELET COUNT, AUTOMATED 336 10^3/uL (150-450); RED BLOOD COUNT 4.39 10^6/uL (4.00-5.40); RED CELL DISTRIBUTION WIDTH 15.8 % (11.5-14.5); WHITE BLOOD COUNT 6.3 10^3/uL (4.0-10.0)
[2017-09-18 16:03] LABS: IMMUNOGLOBULIN G 790 MG/DL (681-1648); IMMUNOGLOBULIN M 166 MG/DL (40-230)
[2017-09-18 17:08] LABS: ERYTHROCYTE SEDIMENTATION RATE 14 mm/hr (0-20)
[2017-09-23 00:07] LABS: IgG SERUM (part of Subclasses) 747 mg/dL (700-1600); IgG Subclass 1 356 mg/dL (248-810); IgG Subclass 2 332 mg/dL (130-555); IgG Subclass 3 46 mg/dL (15-102); IgG Subclass 4 18 mg/dL (2-96)
== END ==
LOC: M SFHCPLAZ 13:39
DX: J98.8 Other specified respiratory disorders (principal)

== ENCOUNTER 2017-09-24 19:57 | Emergency (ER) | payer OTHER ==
[2017-09-24 21:35] LABS: BASO # 0.1 10^3/uL (0.0-0.2); BASO % 0.9 % (0.0-1.0); EOS # 0.5 10^3/uL (0.0-0.50); EOS % 6.7 % (0.0-3.0); HEMATOCRIT 37.5 % (36.0-47.0); HEMOGLOBIN 11.9 g/dl (12.0-16.0); IMMATURE GRANULOCYTE % 0.3 % (0-3.0); LYMPH # 2.6 10^3/uL (1.5-4.5); MEAN CORPUSCULAR HEMOGLOBIN 27.5 pg (27.0-33.0); MEAN CORPUSCULAR HGB CONC 31.7 g/dl (32.0-36.5); MEAN CORPUSCULAR VOLUME 86.8 fl (80.0-96.0); MONO # 0.6 10^3/uL (0.0-0.8); NEUTROPHILS # 3.1 10^3/uL (1.8-7.7); NEUTROPHILS % 45.1 % (36.0-66.0); PLATELET COUNT, AUTOMATED 354 10^3/uL (150-450); RED BLOOD COUNT 4.32 10^6/uL (4.00-5.40); RED CELL DISTRIBUTION WIDTH 15.9 % (11.5-14.5); WHITE BLOOD COUNT 6.9 10^3/uL (4.0-10.0)
[2017-09-24 21:47] LABS: CONTROL LINE HCG INT CTR LINE PRESENT; HCG, SERUM QUALITATIVE NEGATIVE (NEGATIVE)
[2017-09-24 21:53] LABS: ANION GAP 4 MEQ/L (8-16); BLOOD UREA NITROGEN 9 MG/DL (7-18); CALCIUM LEVEL 8.9 MG/DL (8.5-10.1); CARBON DIOXIDE LEVEL 31 MEQ/L (21-32); CHLORIDE LEVEL 106 MEQ/L (98-107); CPK CREATINE PHOSPHOKINASE 53 U/L (26-192); CREATININE FOR GFR 0.73 MG/DL (0.55-1.30); GLOMERULAR FILTRATION RATE > 60.0 (>58); GLUCOSE, FASTING 85 MG/DL (70-100); POTASSIUM SERUM 4.2 MEQ/L (3.5-5.1); SODIUM LEVEL 141 MEQ/L (136-145); TROPONIN I < 0.02 NG/ML (< 0.10)
[2017-09-24 21:54] LABS: CK-MB VALUE MASS < 1.0 NG/ML (<3.6); MB/CK RELATIVE INDEX 1.88 (< OR =4)
[2017-09-24] MEDS ORDERED: ISOVUE-370 76% 100ML VIAL (Q9967) As Ordered (21:59)
[2017-09-24] MEDS: ALBUTEROL SULFATE 2.5 MG/0.5 ML INH NEB SOLN NEB (23:44)
[2017-09-24] MEDS: methylPREDNISolone INJ 125 MG/2 ML VIAL (J2930) IV (23:44)
[2017-09-24] MEDS: BENZONATATE 100 MG CAP PO (23:48)
== END 2017-09-25 00:08 | disposition home or self-care (01) ==
LOC: M ED 09-25 00:08
DX: R07.89 Other chest pain (principal); J45.909 Unspecified asthma, uncomplicated; I10 Essential (primary) hypertension; E78.5 Hyperlipidemia, unspecified; G47.30 Sleep apnea, unspecified; Z87.891 Personal history of nicotine dependence; Z79.899 Other long term (current) drug therapy; Z88.0 Allergy status to penicillin; Z88.8 Allergy status to other drugs, medicaments and biological substances
CPT/HCPCS: Q9967

== ENCOUNTER 2017-10-24 18:50 | Emergency (ER) | payer OTHER ==
[2017-10-24] MEDS: CEFDINIR 300 MG CAP (OMNICEF) PO (20:45)
== END 2017-10-24 20:49 | disposition home or self-care (01) ==
LOC: M ED 18:50
DX: J02.9 Acute pharyngitis, unspecified (principal); H65.03 Acute serous otitis media, bilateral; H66.003 Acute suppurative otitis media without spontaneous rupture of ear drum, bilateral; Z79.899 Other long term (current) drug therapy; Z88.0 Allergy status to penicillin; Z88.8 Allergy status to other drugs, medicaments and biological substances
CPT/HCPCS: 99282

== ENCOUNTER → 2017-12-30 | Outpatient (CLI) | payer OTHER ==
[~2017-12-30] MED LIST changes: -ALBU17IN; -ARNU1INH3; -LIPI10TA PO; -LORA10TA2; +METHACHOLINE KIT (J7674) INH; -ZOFR4TAB3 PO
== END ==
LOC: M CARPUL 08:00
DX: R06.02 Shortness of breath (principal)
CPT/HCPCS: J7674

== ENCOUNTER 2018-01-27 19:23 | Emergency (ER) | payer OTHER ==
[2018-01-27] MEDS: CEFDINIR 300 MG CAP (OMNICEF) PO (21:07)
== END 2018-01-27 21:11 | disposition home or self-care (01) ==
LOC: M ED 19:23
DX: H66.93 Otitis media, unspecified, bilateral (principal); I10 Essential (primary) hypertension; Z86.69 Personal history of other diseases of the nervous system and sense organs; R51 Headache; F32.9 Major depressive disorder, single episode, unspecified
CPT/HCPCS: 99282

== ENCOUNTER 2018-02-05 20:49 | Emergency (ER) | payer OTHER | END 2018-02-05 23:39 | disposition home or self-care (01) | LOC: M ED 20:49 | DX: H65.02 Acute serous otitis media, left ear (principal); I10 Essential (primary) hypertension; R42 Dizziness and giddiness; R51 Headache; J45.909 Unspecified asthma, uncomplicated; F32.9 Major depressive disorder, single episode, unspecified; N80.9 Endometriosis, unspecified; Z79.899 Other long term (current) drug therapy; Z88.0 Allergy status to penicillin; Z88.2 Allergy status to sulfonamides; Z88.1 Allergy status to other antibiotic agents | CPT/HCPCS: 99282 ==

== ENCOUNTER → 2018-02-20 | Outpatient (REF) | payer OTHER ==
[2018-02-25 00:07] LABS: E005-IgE Dog Dander 1.34 kU/L (Class II); F002-IgE Milk < 0.10 kU/L (Class 0); F004-IgE Wheat 0.96 kU/L (Class II); F013-IgE Peanut 1.05 kU/L (Class II); F014-IgE Soybean 0.19 kU/L (Class 0/I); F026-IgE Pork < 0.10 kU/L (Class 0); F027-IgE Beef < 0.10 kU/L (Class 0); F245-IgE Egg, Whole 0.86 kU/L (Class II); FX02-IgE Food Mix (Sea Foods) Positive (.); G002-IgE Bermuda Grass 6.04 kU/L (Class IV); M001-IgE Penicillium chrysogen < 0.10 kU/L (Class 0); M002 IgE Cladosporium herbaru < 0.10 kU/L (Class 0); M003 IgE Aspergillus fumigatu < 0.10 kU/L (Class 0); M006-IgE Alternaria alternata < 0.10 kU/L (Class 0); T001-IgE Maple/Box Elder 2.53 kU/L (Class III); T003-IgE Common Silver Birch 2.37 kU/L (Class III); T007-IgE Oak, White 2.87 kU/L (Class III); T008-IgE Elm, American 2.01 kU/L (Class III); T070-IgE White Mulberry 0.24 kU/L (Class 0/I); W009-IgE Plantain, English 1.11 kU/L (Class II); W014-IgE Pigweed, Rough 2.05 kU/L (Class III); W018-IgE Sheep Sorrel 2.46 kU/L (Class III)
== END ==
LOC: M LABDRWAD 18:36
DX: J30.1 Allergic rhinitis due to pollen (principal); J30.89 Other allergic rhinitis; J30.81 Allergic rhinitis due to animal (cat) (dog) hair and dander; R05 Cough; H10.45 Other chronic allergic conjunctivitis
CPT/HCPCS: 86003

== ENCOUNTER 2018-03-16 22:24 | Emergency (ER) | payer OTHER | END 2018-03-17 04:01 | disposition home or self-care (01) | LOC: M ED 22:24 | DX: J06.9 Acute upper respiratory infection, unspecified (principal); H92.03 Otalgia, bilateral; J45.909 Unspecified asthma, uncomplicated; I10 Essential (primary) hypertension; Z87.891 Personal history of nicotine dependence; Z82.5 Family history of asthma and other chronic lower respiratory diseases | CPT/HCPCS: 87880 ==

== ENCOUNTER 2018-03-25 18:55 | Emergency (ER) | payer OTHER ==
[2018-03-25] MEDS: METOCLOPRAMIDE 10 MG TAB PO (19:49)
== END 2018-03-25 21:37 | disposition home or self-care (01) ==
LOC: M ED 18:55
DX: M79.2 Neuralgia and neuritis, unspecified (principal); I10 Essential (primary) hypertension; Z87.891 Personal history of nicotine dependence; Z88.0 Allergy status to penicillin; Z88.1 Allergy status to other antibiotic agents; Z88.2 Allergy status to sulfonamides; Z88.8 Allergy status to other drugs, medicaments and biological substances; Z79.899 Other long term (current) drug therapy
CPT/HCPCS: 70450

== ENCOUNTER → 2018-04-02 | Outpatient (CLI) | payer OTHER ==
[2018-04-06 08:09] LABS: F025-IGE TOMATO 1.09 kU/L (Class II); F033-IGE ORANGE 0.66 kU/L (Class II)
== END ==
LOC: M LAB 13:46
DX: J30.1 Allergic rhinitis due to pollen (principal); J30.89 Other allergic rhinitis; J30.81 Allergic rhinitis due to animal (cat) (dog) hair and dander; J32.0 Chronic maxillary sinusitis; R05 Cough; H10.45 Other chronic allergic conjunctivitis
CPT/HCPCS: 86003

== ENCOUNTER → 2018-04-02 | Outpatient (CLI) | payer OTHER | LOC: M CARPUL 12:41 | DX: R06.02 Shortness of breath (principal) | CPT/HCPCS: 94060 ==

== ENCOUNTER → 2018-04-09 | Outpatient (CLI) | payer OTHER | LOC: M CARPUL 11:42 | DX: R06.02 Shortness of breath (principal) | CPT/HCPCS: J7674 ==

== ENCOUNTER 2018-06-04 13:16 | Outpatient (RCR) | payer OTHER | END 2018-06-05 | LOC: M PT 13:16 | DX: M54.5 Low back pain (principal) ==

== ENCOUNTER 2018-06-26 13:35 | Outpatient (RCR) | payer OTHER ==
[~2018-06-26 13:35] MED LIST changes: +ALBU17IN INH; +ALLE180T33 PO; +ANEC4CRE3; +ARNU1INH3; +AZIT-12 PO; +BANO25CA PO; +CEFD1CAP8 PO; +CORICAP PO; +CYCL10TA PO; +EPIN0.3I11; +FEXO180T58; +FLON1SPR; +FLON1SPR NARES; +FURO20TA2 PO; +HYDR-3713 PO; +KETO10TAB PO; +LIPI10TA PO; +LISI-542; +LORA-243; +LOSA25TA33 PO; +MECL1CHW2 PO; +MEDR4PAK PO; -METHACHOLINE KIT (J7674) INH; +MOME50SP; +MULT1TAB10 PO; +PRED20TA PO; +TESS100C PO; +TYLE500T78 PO; +ZITHTAB PO; +ZOFR4TAB14 PO
== END 2018-07-06 ==
LOC: M PT 13:35
PROVIDERS: ATTEND Physician Assistant
DX: M54.5 Low back pain (principal)

== ENCOUNTER → 2018-08-11 | Outpatient (REF) | payer OTHER ==
[~2018-08-11] MED LIST changes: +LOSA25TA14 PO; -LOSA25TA33 PO
[2018-08-11 14:29] LABS: BASO # 0.1 10^3/uL (0.0-0.2); BASO % 0.8 % (0.0-1.0); EOS # 0.3 10^3/uL (0.0-0.50); HEMATOCRIT 43.7 % (36.0-47.0); LYMPH # 2.3 10^3/uL (1.5-4.5); LYMPH % 31.4 % (24.0-44.0); MEAN CORPUSCULAR HEMOGLOBIN 26.8 pg (27.0-33.0); MEAN CORPUSCULAR VOLUME 83.6 fl (80.0-96.0); MONO # 0.4 10^3/uL (0.0-0.8); MONO % 5.6 % (0.0-5.0); NEUTROPHILS # 4.2 10^3/uL (1.8-7.7); NEUTROPHILS % 58.1 % (36.0-66.0); PLATELET COUNT, AUTOMATED 355 10^3/uL (150-450); RED BLOOD COUNT 5.23 10^6/uL (4.00-5.40); WHITE BLOOD COUNT 7.3 10^3/uL (4.0-10.0)
[2018-08-11 14:59] LABS: MONO REFLEX EBV COMP NEGATIVE (NEGATIVE)
[2018-08-11 15:02] LABS: ALBUMIN 3.6 GM/DL (3.2-5.2); ALT/SGPT 21 U/L (12-78); BILIRUBIN,TOTAL 0.4 MG/DL (0.2-1.0); BLOOD UREA NITROGEN 8 MG/DL (7-18); C REACTIVE PROTEIN QUANTITATIV 2.39 MG/DL (0.00-0.30); CARBON DIOXIDE LEVEL 27 MEQ/L (21-32); CHLORIDE LEVEL 103 MEQ/L (98-107); CREATININE FOR GFR 0.71 MG/DL (0.55-1.30); GLOMERULAR FILTRATION RATE > 60.0 (>58); GLUCOSE, FASTING 81 MG/DL (70-100); POTASSIUM SERUM 4.5 MEQ/L (3.5-5.1); SODIUM LEVEL 137 MEQ/L (136-145); TOTAL PROTEIN 7.2 GM/DL (6.4-8.2)
[2018-08-11 15:34] LABS: ERYTHROCYTE SEDIMENTATION RATE 22 mm/hr (0-20)
[2018-08-13 00:07] LABS: ANA (HEP2) Negative (.); CYCLIC CITRULLINATED PEPTIDE < 1 units (0-19); EBV VIRAL CAPSID AG IgM <36.0 U/mL (0.0-35.9)
[2018-08-14 14:06] LABS: HIV 1&2 SCREEN CENTAUR NEGATIVE (NEGATIVE)
== END ==
LOC: M SFHCPLAZ 11:40
PROVIDERS: ATTEND Internal Medicine Infectious Disease
DX: R53.82 Chronic fatigue, unspecified (principal); M25.50 Pain in unspecified joint; B99.9 Unspecified infectious disease

== ENCOUNTER 2018-09-20 18:43 | Emergency (ER) | payer OTHER ==
[~2018-09-20] VITALS: Ht 162.6 cm; Wt 122.7 kg
[2018-09-20] MEDS ORDERED: NAPR-885 PO (18:51)
[2018-09-20] MEDS ORDERED: BREO1INH PO (18:51)
[2018-09-20] MEDS ORDERED: TIZANIDINE PO (18:51)
[2018-09-20] MEDS ORDERED: IBUPROFEN 600 MG TAB PO ONE (20:00)
[2018-09-20 20:43] LABS: MONO SCRN NEGATIVE (NEGATIVE)
[2018-09-20 20:52] LABS: INFLUENZA A AMPLIFICATION NEGATIVE (NEGATIVE); INFLUENZA B AMPLIFICATION NEGATIVE (NEGATIVE)
[2018-09-20 21:01] VITALS: BP 144/85
[2018-09-20] MEDS ORDERED: TESS100C PO (21:21)
[2018-09-20] MEDS ORDERED: BENZONATATE 100 MG CAP PO ONE (21:30)
== END 2018-09-20 21:56 | disposition home or self-care (01) ==
LOC: M ED 18:43
DX: J06.9 Acute upper respiratory infection, unspecified (principal); I10 Essential (primary) hypertension; J45.909 Unspecified asthma, uncomplicated; R01.1 Cardiac murmur, unspecified; Z79.899 Other long term (current) drug therapy; Z88.0 Allergy status to penicillin; Z88.1 Allergy status to other antibiotic agents; Z88.2 Allergy status to sulfonamides; Z88.8 Allergy status to other drugs, medicaments and biological substances; Z87.891 Personal history of nicotine dependence

== ENCOUNTER → 2018-10-14 | Outpatient (REF) | payer OTHER ==
[~2018-10-14] MED LIST changes: +BREO1INH PO; +MECL1CHW PO; -MECL1CHW2 PO; +NAPR-885 PO; +TIZANIDINE PO
[2018-10-14 19:40] LABS: ALBUMIN 3.7 GM/DL (3.2-5.2); ALT/SGPT 21 U/L (12-78); BILIRUBIN,TOTAL 0.3 MG/DL (0.2-1.0); BLOOD UREA NITROGEN 9 MG/DL (7-18); CALCIUM LEVEL 9.2 MG/DL (8.5-10.1); CARBON DIOXIDE LEVEL 26 MEQ/L (21-32); CHLORIDE LEVEL 107 MEQ/L (98-107); CREATININE FOR GFR 0.81 MG/DL (0.55-1.30); FREE T4 1.05 NG/DL (0.76-1.46); GLOMERULAR FILTRATION RATE > 60.0 (>58); GLUCOSE, FASTING 92 MG/DL (70-100); HCG, SERUM QUANTITATIVE < 1.0 MIU/ML; POTASSIUM SERUM 4.5 MEQ/L (3.5-5.1); SODIUM LEVEL 140 MEQ/L (136-145); TOTAL PROTEIN 7.1 GM/DL (6.4-8.2)
[2018-10-14 19:51] LABS: BASO # 0.1 10^3/uL (0.0-0.2); BASO % 0.9 % (0.0-1.0); EOS # 0.3 10^3/uL (0.0-0.50); EOS % 4.1 % (0.0-3.0); HEMATOCRIT 39.2 % (36.0-47.0); HEMOGLOBIN 12.3 g/dl (12.0-15.5); LYMPH # 2.5 10^3/uL (1.5-4.5); LYMPH % 36.5 % (24.0-44.0); MEAN CORPUSCULAR HEMOGLOBIN 27.8 pg (27.0-33.0); MEAN CORPUSCULAR HGB CONC 31.4 g/dl (32.0-36.5); MEAN CORPUSCULAR VOLUME 88.7 fl (80.0-96.0); MONO # 0.5 10^3/uL (0.0-0.8); NEUTROPHILS # 3.5 10^3/uL (1.8-7.7); NEUTROPHILS % 51.2 % (36.0-66.0); PLATELET COUNT, AUTOMATED 352 10^3/uL (150-450); RED BLOOD COUNT 4.42 10^6/uL (4.00-5.40); WHITE BLOOD COUNT 6.8 10^3/uL (4.0-10.0)
[2018-10-14 20:04] LABS: INR 0.95; PROTHROMBIN TIME 12.8 SECONDS (12.1-14.4)
[2018-10-14 20:05] LABS: PARTIAL THROMBOPLASTIN TIME 29.6 SECONDS (25.4-37.6)
== END ==
LOC: M SFHCADAM 15:55
PROVIDERS: ATTEND Family Medicine
DX: N93.8 Other specified abnormal uterine and vaginal bleeding (principal)

== ENCOUNTER → 2018-10-26 | Outpatient (CLI) | payer OTHER ==
--- NOTE | 2018-10-26 17:00 | REP ---
PELVIC ULTRASOUND: Real-time sonographic evaluation of the pelvis was performed utilizing transabdominal and endovaginal technique. The bladder measures 9.5 x 7.7 x 9.7 cm. The uterus measures 8.7 x 4.6 x 6.1 cm. Endometrial thickness is 11 mm. Ovaries are normal in size and echotexture, right ovary measuring 1.9 x 0.8 x 1.7 cm and left ovary 1.3 x 0.8 x 1.1 cm. Study is somewhat limited due to patient body habitus. There is no definite adnexal mass or free fluid. IMPRESSION: Essentially negative pelvic ultrasound. No mass or free fluid. Endometrial thickness 11 mm. Electronically Signed by Jose L Lara MD 10/26/2018 06:34 P
== END ==
LOC: M RAD 14:55
PROVIDERS: ATTEND Family Medicine
DX: N93.8 Other specified abnormal uterine and vaginal bleeding (principal)

== ENCOUNTER → 2018-11-04 | Outpatient (CLI) | payer OTHER ==
--- NOTE | 2018-11-06 08:26 | SLEEPCENT ---
DATE OF PROCEDURE: 11/04/2018 ORDERED BY: Dr. Mora Nocturnal polysomnography was performed for the titration of pressure therapy in this patient with obstructive sleep apnea syndrome. For testing a Respironics ComfortGel nasal petite mask was used; 13 cm of water pressure was initially applied to the circuit and the lights extinguished. 7 hours and 27 minutes of data were reviewed. There were 355 minutes of sleep identified. Sleep latency was prolonged at 55 minutes. REM latency was normal at 67 minutes. Sleep architecture was good with 3 REM cycles. Overall sleep efficiency 82.3%. The patient's electrocardiogram showed a sinus rhythm with an average heart rate of 60 beats per minute. Electroencephalogram (EEG) showed normal waveforms for awake and sleep. Respiratory events were found best palliated with CPAP at a pressure of +15. There was some limb activity noted in the EMG leads, however limb movement arousal index was only 4.9. IMPRESSION: Obstructive sleep apnea syndrome (G47.33). RECOMMENDATIONS: Nightly use of pressure therapy 15 cm of water.
== END ==
LOC: M SLEEP 19:58
PROVIDERS: ATTEND Internal Medicine Pulmonary Disease
DX: G47.33 Obstructive sleep apnea (adult) (pediatric) (principal)

== ENCOUNTER 2019-01-03 21:07 | Emergency (ER) | payer OTHER ==
[~2019-01-03] VITALS: Ht 162.6 cm; Wt 122.7 kg
[2019-01-03 23:42] LABS: BASO # 0.1 10^3/uL (0.0-0.2); BASO % 0.8 % (0.0-1.0); EOS # 0.4 10^3/uL (0.0-0.50); HEMATOCRIT 31.1 % (36.0-47.0); HEMOGLOBIN 9.4 g/dl (12.0-15.5); LYMPH # 2.6 10^3/uL (1.5-4.5); MEAN CORPUSCULAR HEMOGLOBIN 25.5 pg (27.0-33.0); MEAN CORPUSCULAR HGB CONC 30.2 g/dl (32.0-36.5); MEAN CORPUSCULAR VOLUME 84.5 fl (80.0-96.0); MONO # 0.4 10^3/uL (0.0-0.8); MONO % 5.5 % (0.0-5.0); NEUTROPHILS # 3.6 10^3/uL (1.8-7.7); NEUTROPHILS % 51.4 % (36.0-66.0); PLATELET COUNT, AUTOMATED 316 10^3/uL (150-450); RED BLOOD COUNT 3.68 10^6/uL (4.00-5.40); WHITE BLOOD COUNT 7.1 10^3/uL (4.0-10.0)
--- NOTE | 2019-01-03 23:43 | REPVR ---
EXAM: US Pelvis Complete, Transabdominal EXAM DATE/TIME: 01/03/2019 10:41 PM CLINICAL HISTORY: 43 years old, female; Menstruation abnormalities; Excessive menstruation; With irregular cycle; Prior surgery; Surgery date: 6+ months; Surgery type: , tubal ligation; Additional info: Heavy vag bleeding, clots TECHNIQUE: Imaging protocol: Real-time transabdominal pelvic ultrasound with image documentation. Complete exam. COMPARISON: US PELVIC NON-OB COMPLETE 10/26/2018 3:08 PM FINDINGS: Uterus/cervix: The uterus measures 12.0 cm in its cephalocaudad dimension and 5.0 x 6.4 cm in its AP and lateral dimensions transabdominal. The uterus measures 9.9 cm in its cephalocaudad dimension and 4.6 x 5.9 cm in its AP and lateral dimensions. The endometrium measures 9 mm transabdominal and 14 mm transvaginal. Right adnexa: The right ovary is not seen. Left adnexa: The left ovary measures 2.2 x 2.5 x 2.2 cm and demonstrates blood flow. Free fluid: None. Bladder: The urinary bladder is within normal limits. IMPRESSION: 1. Borderline enlarged uterus. 2. Otherwise negative of pelvic sonogram. The right ovary is not seen. Electronically signed by: Jesse Mondragon On 01/03/2019 23:42:57 PM
[2019-01-04 00:20] LABS: ALBUMIN 3.1 GM/DL (3.2-5.2); ALT/SGPT 19 U/L (12-78); BILIRUBIN,TOTAL 0.2 MG/DL (0.2-1.0); BLOOD UREA NITROGEN 9 MG/DL (7-18); CALCIUM LEVEL 8.8 MG/DL (8.5-10.1); CARBON DIOXIDE LEVEL 28 MEQ/L (21-32); CHLORIDE LEVEL 108 MEQ/L (98-107); GLOMERULAR FILTRATION RATE > 60.0 (>58); GLUCOSE, FASTING 90 MG/DL (70-100); LIPASE 77 U/L (73-393); POTASSIUM SERUM 4.3 MEQ/L (3.5-5.1); SODIUM LEVEL 140 MEQ/L (136-145); TOTAL PROTEIN 6.7 GM/DL (6.4-8.2)
[2019-01-04 00:59] VITALS: BP 149/78
== END 2019-01-04 01:00 | disposition home or self-care (01) ==
LOC: M ED 21:07
DX: N92.0 Excessive and frequent menstruation with regular cycle (principal); D64.9 Anemia, unspecified; I10 Essential (primary) hypertension; J45.909 Unspecified asthma, uncomplicated; E78.5 Hyperlipidemia, unspecified; R01.1 Cardiac murmur, unspecified; N80.9 Endometriosis, unspecified; Z79.899 Other long term (current) drug therapy; Z88.0 Allergy status to penicillin; Z88.1 Allergy status to other antibiotic agents; Z88.2 Allergy status to sulfonamides; Z88.8 Allergy status to other drugs, medicaments and biological substances

== ENCOUNTER → 2019-01-18 | Outpatient (REF) | payer OTHER | LOC: M SFHCLERA 17:46 | PROVIDERS: ATTEND Nurse Practitioner Family | DX: J02.9 Acute pharyngitis, unspecified (principal) ==

== ENCOUNTER → 2019-01-20 | Outpatient (REF) | payer OTHER ==
[2019-01-20 19:15] LABS: BASO % 0.6 % (0.0-1.0); EOS # 0.3 10^3/uL (0.0-0.50); EOS % 5.2 % (0.0-3.0); FREE T4 0.93 NG/DL (0.76-1.46); HEMATOCRIT 23.2 % (36.0-47.0); LYMPH # 2.4 10^3/uL (1.5-4.5); LYMPH % 37.9 % (24.0-44.0); MEAN CORPUSCULAR HEMOGLOBIN 23.8 pg (27.0-33.0); MEAN CORPUSCULAR HGB CONC 29.3 g/dl (32.0-36.5); MEAN CORPUSCULAR VOLUME 81.1 fl (80.0-96.0); MONO # 0.4 10^3/uL (0.0-0.8); MONO % 5.5 % (0.0-5.0); NEUTROPHILS # 3.2 10^3/uL (1.8-7.7); NEUTROPHILS % 50.5 % (36.0-66.0); PLATELET COUNT, AUTOMATED 339 10^3/uL (150-450); PROLACTIN 9.5 NG/ML; RED BLOOD COUNT 2.86 10^6/uL (4.00-5.40); THYROID STIMULATING HORMONE 2.74 uIU/ML (0.358-3.740); WHITE BLOOD COUNT 6.4 10^3/uL (4.0-10.0)
[2019-01-20 19:17] LABS: HEMOGLOBIN 6.8 g/dl (12.0-15.5)
[2019-01-20 19:21] LABS: HEMOGLOBIN A1c 5.1 %
== END ==
LOC: M LABDRAW1 15:12
PROVIDERS: ATTEND Nurse Practitioner Women's Health
DX: N92.0 Excessive and frequent menstruation with regular cycle (principal)

== ENCOUNTER 2019-01-28 13:30 | Day surgery (SDC) | payer OTHER ==
[~2019-01-28] VITALS: Ht 162.6 cm; Wt 125.8 kg
[~2019-01-28 13:30] MED LIST changes: +CVS500TA35 PO; +FERR325T81 PO; +KETOROLAC 60 MG/2 ML VIAL (J1885) As Ordered ONE; +LIDOCAINE 1% MDV 20ML VIAL SQ PRN; +LR 1,000 ML IV ONE; +MELO15TA28 PO; +PROPOFOL 200 MG/20 ML VIAL As Ordered ONE; +VENTAER INH
[2019-01-28] MEDS ORDERED: LIDOCAINE 2% INJ 100 MG/5 ML SDV (FOR ANES.) As Ordered ONE (13:40)
[2019-01-28] MEDS ORDERED: ONDANSETRON 4MG/2ML VIAL (J2405) As Ordered ONE (13:40)
[2019-01-28] MEDS ORDERED: dexameTHASONE 4 MG/ML 1ML VIAL (J1100) As Ordered ONE (13:40)
[2019-01-28] MEDS ORDERED: PROPOFOL 200 MG/20 ML VIAL As Ordered ONE (13:40)
[2019-01-28] MEDS ORDERED: KETOROLAC 60 MG/2 ML VIAL (J1885) As Ordered ONE (13:40)
[2019-01-28] MEDS ORDERED: MIDAZOLAM INJ 2 MG/2 ML VIAL (J2250) As Ordered ONE (13:40)
[2019-01-28] MEDS ORDERED: fentaNYL 100 MCG/2 ML INJECTION (J3010) As Ordered ONE (13:41)
[2019-01-28 14:02] LABS: HEMATOCRIT 27.4 % (36.0-47.0); HEMOGLOBIN 7.8 g/dl (12.0-15.5); MEAN CORPUSCULAR HEMOGLOBIN 24.3 pg (27.0-33.0); MEAN CORPUSCULAR HGB CONC 28.5 g/dl (32.0-36.5); MEAN CORPUSCULAR VOLUME 85.4 fl (80.0-96.0); PLATELET COUNT, AUTOMATED 357 10^3/uL (150-450); RED BLOOD COUNT 3.21 10^6/uL (4.00-5.40); WHITE BLOOD COUNT 11.6 10^3/uL (4.0-10.0)
[2019-01-28] MEDS ORDERED: ACETAMINOPHEN 1000MG 100ML IV BTL (OFIRMEV) (J0131 PER 10MG) As Ordered ONE (15:34)
[2019-01-28] MEDS ORDERED: LR 1,000 ML IV SCH ×2 (16:30)
[2019-01-28] MEDS ORDERED: ONDANSETRON 4MG/2ML VIAL (J2405) IV PRN (16:30)
[2019-01-28] MEDS ORDERED: IBUPROFEN 600 MG TAB PO PRN (16:30)
[2019-01-28] MEDS: fentaNYL 100 MCG/2 ML INJECTION (J3010) IV PRN ×2 (16:31→16:37)
[2019-01-28 18:20] VITALS: BP 119/65
--- NOTE | 2019-01-29 13:34 | RO ---
DATE OF SURGERY: 01/28/2019 PREOPERATIVE DIAGNOSIS/INDICATION FOR SURGERY: Bleeding, anemia, and ULISSES on her path. POSTOPERATIVE DIAGNOSIS: Bleeding, anemia, and ULISSES on her path. PROCEDURE: She had an endocervical curettage, a dilatation and curettage, and hysteroscopy and MyoSure resection. SURGEON: Arlene Fuentes MD RECORDIST: ANESTHESIA: General endotracheal anesthesia. BRIEF DESCRIPTION OF PROCEDURE AND FINDINGS: Danielle was brought to the operating room where sufficient general endotracheal anesthesia was induced, and she was prepped, draped and positioned in the usual sterile fashion, the bladder emptied, and the cervix grasped with a single tooth tenaculum. It is not that accessible from below. She had endocervical curettage and then cervical dilation in order to allow introduction of the hysteroscope which was used to visualize the endometrial cavity, and while visualizing the endometrial cavity, considerable overgrowth and a kind of disorderly pattern was noted, not an isolated polyp or any specific lesion in that sense, but just considerable overgrowth despite the fact that she had already been bleeding for some time and already had anemia, so this is very much consistent with the patient's report of heavy bleeding. We went ahead and used the MyoSure XL to just resect that 360 degrees. There was considerable tissue. We did end up having the cervix a little to dilated, so we had flow back of the fluid, so once we had resected with the one bag, we went ahead with the curette and resected again with that getting several solid samples and we continued to resect until we had normal uterine cry throughout and only after that did we end the case. Bimanual massage showed good uterine tone and the procedure was then ended. ESTIMATED BLOOD LOSS FOR PROCEDURE: Maybe 20 mL. FLUID REPLACEMENT: Crystalloid. COMPLICATIONS: None. CONDITION AND DISPOSITION: Danielle tolerated the procedure well and was recovering in the recovery room in good condition.
== END 2019-01-28 18:30 | disposition home or self-care (01) ==
LOC: M SDC 13:30
PROVIDERS: ATTEND Obstetrics & Gynecology
DX: N92.5 Other specified irregular menstruation (principal); D64.9 Anemia, unspecified; R87.619 Unspecified abnormal cytological findings in specimens from cervix uteri; K21.9 Gastro-esophageal reflux disease without esophagitis; M79.7 Fibromyalgia; F32.9 Major depressive disorder, single episode, unspecified; I10 Essential (primary) hypertension; Z88.0 Allergy status to penicillin; Z91.012 Allergy to eggs; Z88.2 Allergy status to sulfonamides; Z87.891 Personal history of nicotine dependence
CPT/HCPCS: 36415; 58558; 85027; 88304; 88305; J0131; J1100; J1885; J2250; J2405; J3010

== ENCOUNTER 2019-02-24 19:46 | Emergency (ER) | payer OTHER ==
[~2019-02-24] VITALS: Ht 162.6 cm; Wt 125.9 kg
[~2019-02-24 19:46] MED LIST changes: -KETOROLAC 60 MG/2 ML VIAL (J1885) As Ordered ONE; -LIDOCAINE 1% MDV 20ML VIAL SQ PRN; -LR 1,000 ML IV ONE; -PROPOFOL 200 MG/20 ML VIAL As Ordered ONE
[2019-02-24] MEDS ORDERED: MAXI1000 (19:53)
[2019-02-24] MEDS ORDERED: PREVTAB2 (19:53)
[2019-02-24] MEDS ORDERED: CYCL5TAB (19:53)
--- NOTE | 2019-02-24 21:43 | REPVR ---
EXAM: US Duplex Left Lower Extremity Veins, Limited EXAM DATE/TIME: 02/24/2019 9:03 PM CLINICAL HISTORY: 43 years old, female; Pain; Leg, lower; Left; Additional info: Rule out dvt TECHNIQUE: Imaging protocol: Real-time Duplex ultrasound of the Left Lower Extremity with 2-D king scale, color Doppler flow and spectral waveform analysis with image documentation. Limited exam focused on the left lower extremity veins. COMPARISON: No relevant prior studies available. FINDINGS: Left deep veins: Unremarkable. The common femoral, femoral, proximal profunda femoral and popliteal veins are patent without thrombus. Normal Doppler waveforms. Normal compressibility and/or augmentation response. Left superficial veins: Unremarkable. Saphenofemoral junction is patent without thrombus. Soft tissues: Unremarkable. IMPRESSION: No acute findings. No evidence of deep vein thrombosis. Electronically signed by: Zak Cheema On 02/24/2019 21:43:08 PM
[2019-02-25 00:07] VITALS: BP 141/66
== END 2019-02-25 00:58 | disposition home or self-care (01) ==
LOC: M ED 19:46
DX: M79.89 Other specified soft tissue disorders (principal); M79.662 Pain in left lower leg; I10 Essential (primary) hypertension; E78.5 Hyperlipidemia, unspecified; R42 Dizziness and giddiness; N80.9 Endometriosis, unspecified; G47.30 Sleep apnea, unspecified; F32.9 Major depressive disorder, single episode, unspecified; Z87.891 Personal history of nicotine dependence

== ENCOUNTER → 2019-03-16 | Outpatient (CLI) | payer OTHER ==
[~2019-03-16] MED LIST changes: +CYCL5TAB; +MAXI1000; +PREVTAB2
[2019-03-16 13:02] LABS: HEMATOCRIT 35.8 % (36.0-47.0); HEMOGLOBIN 10.9 g/dl (12.0-15.5); MEAN CORPUSCULAR HEMOGLOBIN 26.1 pg (27.0-33.0); MEAN CORPUSCULAR HGB CONC 30.4 g/dl (32.0-36.5); MEAN CORPUSCULAR VOLUME 85.6 fl (80.0-96.0); PLATELET COUNT, AUTOMATED 320 10^3/uL (150-450); RED BLOOD COUNT 4.18 10^6/uL (4.00-5.40); WHITE BLOOD COUNT 7.9 10^3/uL (4.0-10.0)
--- NOTE | 2019-03-16 14:17 | REP ---
LEFT FOOT FOUR VIEWS: Four views of the left foot performed. No fracture or dislocation is seen. There is a small posterior calcaneal spur. A larger inferior calcaneal spur has a length of approximately 5 mm. Oval calcific density at the dorsal aspect of the navicular bone may represent an accessory ossicle or old fracture. I see no other significant finding. IMPRESSION: Inferior and posterior calcaneal spurring. Electronically Signed by Jose L Lara MD 03/17/2019 04:53 P
== END ==
LOC: M LAB 12:33
PROVIDERS: ATTEND Family Medicine
DX: M77.32 Calcaneal spur, left foot (principal); D50.0 Iron deficiency anemia secondary to blood loss (chronic)

== ENCOUNTER → 2019-04-01 | Outpatient (CLI) | payer OTHER ==
[2019-04-01 17:03] LABS: HCG, SERUM QUALITATIVE NEGATIVE (NEGATIVE)
== END ==
LOC: M LAB 15:53
PROVIDERS: ATTEND Otolaryngology
DX: Z01.818 Encounter for other preprocedural examination (principal)

== ENCOUNTER → 2019-04-06 | Outpatient (REF) | payer OTHER ==
[2019-04-06 15:51] LABS: HEMATOCRIT 38.6 % (36.0-47.0); MEAN CORPUSCULAR HEMOGLOBIN 26.8 pg (27.0-33.0); MEAN CORPUSCULAR HGB CONC 31.1 g/dl (32.0-36.5); MEAN CORPUSCULAR VOLUME 86.2 fl (80.0-96.0); PLATELET COUNT, AUTOMATED 291 10^3/uL (150-450); RED BLOOD COUNT 4.48 10^6/uL (4.00-5.40); WHITE BLOOD COUNT 7.1 10^3/uL (4.0-10.0)
[2019-04-06 16:29] LABS: BLOOD UREA NITROGEN 8 MG/DL (7-18); CALCIUM LEVEL 9.1 MG/DL (8.5-10.1); CARBON DIOXIDE LEVEL 27 MEQ/L (21-32); CHLORIDE LEVEL 107 MEQ/L (98-107); CREATININE FOR GFR 0.92 MG/DL (0.55-1.30); GLOMERULAR FILTRATION RATE > 60.0 (>58); GLUCOSE, FASTING 124 MG/DL (70-100); SODIUM LEVEL 140 MEQ/L (136-145)
== END ==
LOC: M SFHCPLAZ 14:18
PROVIDERS: ATTEND Family Medicine
DX: I10 Essential (primary) hypertension (principal); D50.0 Iron deficiency anemia secondary to blood loss (chronic)

== ENCOUNTER 2019-06-28 20:32 | Emergency (ER) | payer OTHER ==
[~2019-06-28] VITALS: Ht 162.6 cm; Wt 125.5 kg
[2019-06-28] MEDS ORDERED: NORT1TAB3 PO (20:48)
[2019-06-28 21:50] LABS: BASO # 0.1 10^3/uL (0.0-0.2); BASO % 0.8 % (0.0-1.0); EOS # 0.2 10^3/uL (0.0-0.5); EOS % 2.9 % (0.0-3.0); HEMATOCRIT 42.7 % (36.0-47.0); HEMOGLOBIN 13.6 g/dl (12.0-15.5); LYMPH # 1.6 10^3/uL (1.5-5.0); LYMPH % 24.3 % (24.0-44.0); MEAN CORPUSCULAR HEMOGLOBIN 28.3 pg (27.0-33.0); MEAN CORPUSCULAR HGB CONC 31.9 g/dl (32.0-36.5); MEAN CORPUSCULAR VOLUME 88.8 fl (80.0-96.0); MONO # 0.4 10^3/uL (0.0-0.8); MONO % 6.5 % (0.0-5.0); NEUTROPHILS # 4.2 10^3/uL (1.5-8.5); NEUTROPHILS % 65.2 % (36.0-66.0); PLATELET COUNT, AUTOMATED 310 10^3/uL (150-450); RED BLOOD COUNT 4.81 10^6/uL (4.00-5.40); WHITE BLOOD COUNT 6.5 10^3/uL (4.0-10.0)
[2019-06-28 22:13] LABS: BLOOD UREA NITROGEN 6 MG/DL (7-18); CALCIUM LEVEL 8.9 MG/DL (8.5-10.1); CARBON DIOXIDE LEVEL 25 MEQ/L (21-32); CHLORIDE LEVEL 108 MEQ/L (98-107); CREATININE FOR GFR 0.97 MG/DL (0.55-1.30); GLOMERULAR FILTRATION RATE > 60.0 (>58); GLUCOSE, FASTING 109 MG/DL (70-100); POTASSIUM SERUM 3.7 MEQ/L (3.5-5.1); SODIUM LEVEL 140 MEQ/L (136-145)
[2019-06-28 22:15] LABS: ALBUMIN 2.9 GM/DL (3.2-5.2); ALT/SGPT 13 U/L (12-78); BILIRUBIN,DIRECT < 0.1 MG/DL (0.0-0.2); BILIRUBIN,TOTAL 0.3 MG/DL (0.2-1.0); LIPASE 76 U/L (73-393); TOTAL PROTEIN 6.6 GM/DL (6.4-8.2)
[2019-06-28 22:16] LABS: MONO REFLEX EBV COMP NEGATIVE (NEGATIVE)
[2019-06-28 22:18] LABS: INFLUENZA A AMPLIFICATION NEGATIVE (NEGATIVE); INFLUENZA B AMPLIFICATION NEGATIVE (NEGATIVE)
[2019-06-28] MEDS ORDERED: BENZONATATE 100 MG CAP PO ONE (22:45)
[2019-06-28] MEDS ORDERED: ISOVUE-370 76% 100ML VIAL (Q9967) As Ordered ONE (23:02)
[2019-06-28] MEDS: ALBUTEROL SULFATE 2.5 MG/0.5 ML INH NEB SOLN NEB PRN ×2 (23:02→23:37)
[2019-06-28 23:13] LABS: CK-MB VALUE MASS < 1.0 NG/ML (<3.6); CPK CREATINE PHOSPHOKINASE 48 U/L (26-192); MB/CK RELATIVE INDEX 2.08 (< OR =4); TROPONIN I < 0.02 NG/ML (< 0.10)
[2019-06-29] MEDS: ALBUTEROL SULFATE 2.5 MG/0.5 ML INH NEB SOLN NEB PRN (00:34)
--- NOTE | 2019-06-29 00:56 | REPVR ---
PROCEDURE INFORMATION: Exam: CT Angiography Chest With Contrast Exam date and time: 06/28/2019 10:38 PM Age: 44 years old Clinical indication: Chest pain; Pleurodynia; Additional info: Elevated dimer, pleuritic cp TECHNIQUE: Imaging protocol: Computed tomographic angiography of the chest with intravenous contrast. 3D rendering: MIP and/or 3D reconstructed images were created by the technologist. Radiation optimization: All CT scans at this facility use at least one of these dose optimization techniques: automated exposure control; mA and/or kV adjustment per patient size (includes targeted exams where dose is matched to clinical indication); or iterative reconstruction. Contrast material: ISO; Contrast volume: 75 ml; Contrast route: AC; COMPARISON: CT ANGIO CHEST 09/24/2017 10:10 PM FINDINGS: Pulmonary arteries: The main pulmonary artery measures 24 mm. Suboptimal opacification of the pulmonary arteries. No gross central pulmonary embolism is identified. Emboli beyond first order branching are not excluded. Aorta: Motion artifact precludes accurate measurement of the ascending thoracic aorta. Lungs: Minimal bibasilar infiltrates or atelectasis. Pleural space: Unremarkable. No pneumothorax. No pleural effusion. Heart: Unremarkable. No cardiomegaly. No pericardial effusion. Mediastinum: There is soft tissue conforming to the anterior mediastinum consistent with residual thymic tissue. Gallbladder and bile ducts: Status post cholecystectomy. Lymph nodes: Unremarkable. No enlarged lymph nodes. Bones/joints: Mild degenerative spurring of the thoracic spine. Soft tissues: Unremarkable. IMPRESSION: 1. Minimal bibasilar infiltrates and atelectasis, slightly improved since 09/24/2017. 2. Suboptimal opacification of pulmonary arteries. No gross central pulmonary embolism is identified. Emboli beyond first order branching are not excluded. 3. Status post cholecystectomy which is similar. Electronically signed by: Jesse Mondragon On 06/29/2019 00:56:28 AM
[2019-06-29 01:21] VITALS: BP 134/80
[2019-06-29] MEDS ORDERED: AZIT-12 PO (01:37)
[2019-06-29] MEDS ORDERED: ALBU83IN NEB (01:37)
[2019-06-29] MEDS ORDERED: PRED20TA PO (01:37)
[2019-06-29] MEDS ORDERED: TESS100C PO (01:39)
--- NOTE | 2019-06-29 08:02 | REP ---
Clinical: Left-sided chest pain . Comparison: 12/28/2017 . Technique: PA and lateral. Findings: The mediastinum and cardiac silhouette are normal. The lung laughlin are clear and without acute consolidation, effusion, or pneumothorax. The skeletal structures are intact and normal. Impression: 1. No acute cardiopulmonary process. Electronically Signed by Srinivas Ernandez MD 06/29/2019 07:54 A
--- NOTE | 2019-06-29 20:21 | ECGEPIP ---
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
[2019-07-01 14:06] LABS: EBV VIRAL CAPSID AG IgG >600.0 U/mL (0.0-17.9); EBV VIRAL CAPSID AG IgM <36.0 U/mL (0.0-35.9)
== END 2019-06-29 02:18 | disposition home or self-care (01) ==
LOC: M ED 20:32
DX: J45.901 Unspecified asthma with (acute) exacerbation (principal); J20.5 Acute bronchitis due to respiratory syncytial virus; I10 Essential (primary) hypertension; G47.33 Obstructive sleep apnea (adult) (pediatric); Z99.89 Dependence on other enabling machines and devices; Z79.899 Other long term (current) drug therapy; Z79.3 Long term (current) use of hormonal contraceptives; Z88.0 Allergy status to penicillin; Z88.1 Allergy status to other antibiotic agents; Z88.2 Allergy status to sulfonamides; Z88.8 Allergy status to other drugs, medicaments and biological substances; Z91.012 Allergy to eggs; Z91.018 Allergy to other foods; Z87.891 Personal history of nicotine dependence
CPT/HCPCS: 36415; 71046; 71275; 80048; 80076; 82550; 82553; 83690; 84702; 85025; 85379; 86308; 86663; 86664; 86665; 87631; 87880; 93005; 99284; Q9967

== ENCOUNTER 2019-07-12 19:48 | Emergency (ER) | payer OTHER ==
[~2019-07-12] VITALS: Ht 162.6 cm; Wt 127.3 kg
[~2019-07-12 19:48] MED LIST changes: +ALBU83IN NEB; +NORT1TAB3 PO
[2019-07-12 21:23] LABS: BASO % 0.5 % (0.0-1.0); EOS # 0.2 10^3/uL (0.0-0.5); EOS % 2.6 % (0.0-3.0); HEMATOCRIT 43.3 % (36.0-47.0); HEMOGLOBIN 13.7 g/dl (12.0-15.5); LYMPH # 3.3 10^3/uL (1.5-5.0); LYMPH % 41.8 % (24.0-44.0); MEAN CORPUSCULAR HEMOGLOBIN 28.2 pg (27.0-33.0); MEAN CORPUSCULAR HGB CONC 31.6 g/dl (32.0-36.5); MEAN CORPUSCULAR VOLUME 89.1 fl (80.0-96.0); MONO # 0.5 10^3/uL (0.0-0.8); MONO % 5.6 % (0.0-5.0); NEUTROPHILS # 3.9 10^3/uL (1.5-8.5); NEUTROPHILS % 49.2 % (36.0-66.0); PLATELET COUNT, AUTOMATED 337 10^3/uL (150-450); RED BLOOD COUNT 4.86 10^6/uL (4.00-5.40)
[2019-07-12] MEDS ORDERED: ISOVUE-370 76% 100ML VIAL (Q9967) As Ordered ONE (21:26)
[2019-07-12] MEDS ORDERED: CORITAB6 PO (21:47)
[2019-07-12] MEDS ORDERED: NORE1TAB34 PO (21:47)
[2019-07-12 21:51] LABS: ALBUMIN 3.1 GM/DL (3.2-5.2); ALT/SGPT 12 U/L (12-78); BILIRUBIN,DIRECT < 0.1 MG/DL (0.0-0.2); BILIRUBIN,TOTAL 0.2 MG/DL (0.2-1.0); CK-MB VALUE MASS < 1.0 NG/ML (<3.6); CPK CREATINE PHOSPHOKINASE 61 U/L (26-192); LIPASE 166 U/L (73-393); MB/CK RELATIVE INDEX 1.64 (< OR =4); TOTAL PROTEIN 7.1 GM/DL (6.4-8.2); TROPONIN I < 0.02 NG/ML (< 0.10)
--- NOTE | 2019-07-12 22:14 | REPVR ---
PROCEDURE INFORMATION: Exam: CT Angiography Chest With Contrast Exam date and time: 07/12/2019 9:43 PM Age: 44 years old Clinical indication: Chest pain; Additional info: Chest pain; Prior sub-optimal cta for pe TECHNIQUE: Imaging protocol: Computed tomographic angiography of the chest with intravenous contrast. 3D rendering: MIP and/or 3D reconstructed images were created by the technologist. Radiation optimization: All CT scans at this facility use at least one of these dose optimization techniques: automated exposure control; mA and/or kV adjustment per patient size (includes targeted exams where dose is matched to clinical indication); or iterative reconstruction. Contrast material: ISOVUE 370; Contrast volume: 75 ml; Contrast route: IV; COMPARISON: CT ANGIO CHEST 06/28/2019 11:46 PM FINDINGS: Pulmonary arteries: There are no pulmonary emboli. Aorta: There is no aortic dissection or aneurysm. Lungs: There is bibasilar compressive atelectasis. Lungs otherwise clear. Pleural space: Unremarkable. No pneumothorax. No pleural effusion. Heart: Unremarkable. No cardiomegaly. No pericardial effusion. Lymph nodes: Unremarkable. No enlarged lymph nodes. Bones/joints: The spine demonstrates mild degenerative changes. Soft tissues: Unremarkable. IMPRESSION: 1. There is no aortic dissection or aneurysm. 2. There are no pulmonary emboli. 3. No acute pulmonary parenchymal abnormalities. Electronically signed by: Chi Welsh On 07/12/2019 22:13:46 PM
[2019-07-12 22:15] VITALS: BP 152/85
--- NOTE | 2019-07-14 07:50 | ECGEPIP ---
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
== END 2019-07-12 22:48 | disposition home or self-care (01) ==
LOC: M ED 19:48
DX: J21.0 Acute bronchiolitis due to respiratory syncytial virus (principal); F17.210 Nicotine dependence, cigarettes, uncomplicated; Z88.0 Allergy status to penicillin; Z88.1 Allergy status to other antibiotic agents; Z88.2 Allergy status to sulfonamides; Z91.018 Allergy to other foods; Z91.012 Allergy to eggs; Z79.1 Long term (current) use of non-steroidal anti-inflammatories (NSAID); Z79.51 Long term (current) use of inhaled steroids; Z79.52 Long term (current) use of systemic steroids; Z79.899 Other long term (current) drug therapy
CPT/HCPCS: 36415; 71275; 80047; 80076; 82550; 82553; 83690; 84443; 85025; 93005; 93041; 94760; 99284; Q9967

== ENCOUNTER → 2019-10-27 | Outpatient (REF) | payer OTHER ==
[~2019-10-27] MED LIST changes: +CORITAB6 PO; +CYCL-707 PO; -CYCL10TA PO; +NORE1TAB34 PO
[2019-10-27 17:01] LABS: BASO # 0.1 10^3/uL (0.0-0.2); BASO % 0.7 % (0.0-1.0); EOS # 0.4 10^3/uL (0.0-0.5); EOS % 5.1 % (0.0-3.0); HEMATOCRIT 43.8 % (36.0-47.0); HEMOGLOBIN 14.3 g/dl (12.0-15.5); LYMPH # 2.5 10^3/uL (1.5-5.0); LYMPH % 35.1 % (24.0-44.0); MEAN CORPUSCULAR HEMOGLOBIN 29.5 pg (27.0-33.0); MEAN CORPUSCULAR HGB CONC 32.6 g/dl (32.0-36.5); MEAN CORPUSCULAR VOLUME 90.5 fl (80.0-96.0); MONO # 0.6 10^3/uL (0.0-0.8); MONO % 8.3 % (0.0-5.0); NEUTROPHILS # 3.7 10^3/uL (1.5-8.5); NEUTROPHILS % 50.5 % (36.0-66.0); PLATELET COUNT, AUTOMATED 328 10^3/uL (150-450); RED BLOOD COUNT 4.84 10^6/uL (4.00-5.40); WHITE BLOOD COUNT 7.2 10^3/uL (4.0-10.0)
[2019-10-27 17:27] LABS: MONO REFLEX EBV COMP NEGATIVE (NEGATIVE)
[2019-10-27 17:29] LABS: ALBUMIN 3.2 GM/DL (3.2-5.2); ALT/SGPT 17 U/L (12-78); BILIRUBIN,TOTAL 0.4 MG/DL (0.2-1.0); BLOOD UREA NITROGEN 9 MG/DL (7-18); C REACTIVE PROTEIN QUANTITATIV 2.23 MG/DL (0.00-0.30); CALCIUM LEVEL 9.6 MG/DL (8.5-10.1); CARBON DIOXIDE LEVEL 27 MEQ/L (21-32); CHLORIDE LEVEL 105 MEQ/L (98-107); CREATININE FOR GFR 0.98 MG/DL (0.55-1.30); GLOMERULAR FILTRATION RATE > 60.0 (>58); GLUCOSE, FASTING 104 MG/DL (70-100); POTASSIUM SERUM 4.2 MEQ/L (3.5-5.1); SODIUM LEVEL 137 MEQ/L (136-145); TOTAL PROTEIN 6.9 GM/DL (6.4-8.2)
[2019-10-27 17:41] LABS: ERYTHROCYTE SEDIMENTATION RATE 21 mm/hr (0-20)
== END ==
LOC: M SFHCPLAZ 15:37
PROVIDERS: ATTEND Internal Medicine Infectious Disease
DX: R53.82 Chronic fatigue, unspecified (principal)

== ENCOUNTER → 2020-01-12 | Outpatient (CLI) | payer OTHER ==
--- NOTE | 2020-01-13 11:52 | REP ---
MRI brain: 01/12/2020. Indication: Cognitive impairment. Stroke. Technique: Multiplanar short and long TR sequences of the brain were obtained without IV Gadolinium imaging. Comparison: 12/31/2011. Findings: There are no areas of restricted diffusion. There is no intracranial mass effect, hydrocephalus or significant hemorrhage. No areas of significant abnormal signal are present within the brainstem or brain parenchyma. The large intracranial flow voids are unremarkable. Right vertebral artery enhances noted. There is no significant fluid within the visualized paranasal sinuses/mastoid air cells. Impression: No acute intracranial process. Electronically Signed by Romeo Quijano DO 01/13/2020 11:45 A
== END ==
LOC: M RAD 15:02
PROVIDERS: ATTEND Physician Assistant
DX: G31.84 Mild cognitive impairment of uncertain or unknown etiology (principal)

== ENCOUNTER 2020-09-11 19:48 | Emergency (ER) | payer OTHER ==
[~2020-09-11 19:48] MED LIST changes: -LISI-542; +LISI-898
[2020-09-11] MEDS ORDERED: KETOROLAC 30 MG/ML 1ML VIAL IV ONE (20:45)
[2020-09-11 21:11] LABS: BASO # 0.1 10^3/uL (0.0-0.2); BASO % 0.5 % (0.0-1.0); EOS # 0.2 10^3/uL (0.0-0.5); EOS % 1.8 % (0.0-3.0); HEMATOCRIT 41.9 % (36.0-47.0); HEMOGLOBIN 13.2 g/dl (12.0-15.5); LYMPH # 3.2 10^3/uL (1.5-5.0); LYMPH % 30.4 % (24.0-44.0); MEAN CORPUSCULAR HEMOGLOBIN 29.2 pg (27.0-33.0); MEAN CORPUSCULAR HGB CONC 31.5 g/dl (32.0-36.5); MEAN CORPUSCULAR VOLUME 92.7 fl (80.0-96.0); MONO # 0.6 10^3/uL (0.0-0.8); MONO % 5.3 % (2.0-8.0); NEUTROPHILS # 6.5 10^3/uL (1.5-8.5); NEUTROPHILS % 61.7 % (36.0-66.0); PLATELET COUNT, AUTOMATED 324 10^3/uL (150-450); RED BLOOD COUNT 4.52 10^6/uL (4.00-5.40); WHITE BLOOD COUNT 10.6 10^3/uL (4.0-10.0)
[2020-09-11 21:39] LABS: BLOOD UREA NITROGEN 11 MG/DL (7-18); CALCIUM LEVEL 8.8 MG/DL (8.5-10.1); CARBON DIOXIDE LEVEL 30 MEQ/L (21-32); CHLORIDE LEVEL 107 MEQ/L (98-107); CK-MB VALUE MASS < 1.0 NG/ML (<3.6); CPK CREATINE PHOSPHOKINASE 75 U/L (26-192); CREATININE FOR GFR 0.89 MG/DL (0.55-1.30); GLOMERULAR FILTRATION RATE > 60.0 (>58); GLUCOSE, FASTING 101 MG/DL (70-100); MB/CK RELATIVE INDEX 1.33 (< OR =4); POTASSIUM SERUM 3.6 MEQ/L (3.5-5.1); SODIUM LEVEL 142 MEQ/L (136-145); TROPONIN I < 0.02 NG/ML (< 0.10)
[2020-09-11 21:50] LABS: MONO SCRN NEGATIVE (NEGATIVE)
--- NOTE | 2020-09-11 21:52 | REPVR ---
PROCEDURE INFORMATION: Exam: XR Chest Exam date and time: 09/11/2020 9:10 PM Age: 45 years old Clinical indication: Chest pain; Type not specified TECHNIQUE: Imaging protocol: XR of the chest Views: 1 view. COMPARISON: CR Chest, 2 view PA, Lat 06/28/2019 9:37 PM FINDINGS: Tubes, catheters and devices: Multiple leads overlie the chest. Lungs: There is no visualized lung consolidation. Prominence of the pulmonary vascular markings. Pleural spaces: No pleural effusion. No pneumothorax. Heart/Mediastinum: The cardiac silhouette appears mildly enlarged. Diaphragm: Mild elevation of the right hemidiaphragm. Bones/joints: No visualized acute osseous abnormality. IMPRESSION: 1. There is no visualized lung consolidation. 2. Mild elevation of the right hemidiaphragm. 3. The cardiac silhouette appears mildly enlarged. 4. Prominence of the pulmonary vascular markings. Electronically signed by: Josh Willoughby On 09/11/2020 21:52:53 PM
[2020-09-11] MEDS ORDERED: NAPR-837 PO (22:29)
[2020-09-11 22:45] VITALS: BP 154/67
--- NOTE | 2020-09-12 07:13 | ECGEPIP ---
[facility] - ED Test Date: 2020-09-11 Pat Name: ADRI DUARTE Department: Room: - Gender: Female Oncology Research Rn: ty : 1975 Requested By: JOHN Bryan Order Number: [id number] Reading MD: Elias Augustine Measurements Intervals [place] Rate: 71 P: 29 AR: 142 QRS: -1 QRSD: 90 T: 13 QT: 412 QTc: 447 Interpretive Statements Normal sinus rhythm POOR R WAVE PROGRESSION POSSIBLE INCOMPLETE RIGHT BUNDLE BRANCH BLOCK NONSPECIFIC T WAVE ABNORMALITY(S) SIMILAR TO 07/12/19 Electronically Signed on 09-12-2020 7:13:07 EST by Elias Augustine
== END 2020-09-11 22:45 | disposition home or self-care (01) ==
LOC: M ED 19:48
DX: M94.0 Chondrocostal junction syndrome [Tietze] (principal); I10 Essential (primary) hypertension; E78.5 Hyperlipidemia, unspecified; J45.909 Unspecified asthma, uncomplicated; R01.1 Cardiac murmur, unspecified; M79.7 Fibromyalgia; Z88.1 Allergy status to other antibiotic agents; Z88.2 Allergy status to sulfonamides; Z88.8 Allergy status to other drugs, medicaments and biological substances; Z79.899 Other long term (current) drug therapy
CPT/HCPCS: 36415; 71045; 80048; 82550; 82553; 85025; 86308; 93005; 93041; 94760; 96374; 99285; J1885

== ENCOUNTER → 2020-11-08 | Outpatient (REF) | payer OTHER ==
[~2020-11-08] MED LIST changes: +NAPR-837 PO
[2020-11-08 14:07] LABS: BLOOD UREA NITROGEN 10 MG/DL (7-18); CALCIUM LEVEL 9.8 MG/DL (8.5-10.1); CARBON DIOXIDE LEVEL 29 MEQ/L (21-32); CHLORIDE LEVEL 107 MEQ/L (98-107); CHOLESTEROL LEVEL 222 MG/DL (<200); CHOLESTEROL RISK RATIO 4.269 (<5); GLOMERULAR FILTRATION RATE > 60.0 (>58); GLUCOSE, FASTING 87 MG/DL (70-100); HDL CHOLESTEROL 52 MG/DL (>40); LDL CHOLESTEROL 121 MG/DL (<100); NON-HDL-C 170 MG/DL; POTASSIUM SERUM 4.5 MEQ/L (3.5-5.1); SODIUM LEVEL 140 MEQ/L (136-145); TRIGLYCERIDES LEVEL 247 MG/DL (<150)
[2020-11-08 15:24] LABS: BASO # 0.1 10^3/uL (0.0-0.2); BASO % 0.6 % (0.0-1.0); EOS # 0.4 10^3/uL (0.0-0.5); EOS % 3.7 % (0.0-3.0); HEMATOCRIT 43.2 % (36.0-47.0); HEMOGLOBIN 14.2 g/dl (12.0-15.5); LYMPH # 3.5 10^3/uL (1.5-5.0); LYMPH % 32.4 % (24.0-44.0); MEAN CORPUSCULAR HGB CONC 32.9 g/dl (32.0-36.5); MEAN CORPUSCULAR VOLUME 91.1 fl (80.0-96.0); MONO # 0.6 10^3/uL (0.0-0.8); MONO % 5.9 % (2.0-8.0); NEUTROPHILS # 6.2 10^3/uL (1.5-8.5); PLATELET COUNT, AUTOMATED 343 10^3/uL (150-450); RED BLOOD COUNT 4.74 10^6/uL (4.00-5.40); WHITE BLOOD COUNT 10.9 10^3/uL (4.0-10.0)
[2020-11-08 15:52] LABS: MONO REFLEX EBV COMP NEGATIVE (NEGATIVE)
[2020-11-08 15:59] LABS: ALBUMIN 3.3 GM/DL (3.2-5.2); ALT/SGPT 19 U/L (12-78); BILIRUBIN,DIRECT < 0.1 MG/DL (0.0-0.2); BILIRUBIN,TOTAL 0.3 MG/DL (0.2-1.0); TOTAL PROTEIN 6.7 GM/DL (6.4-8.2)
== END ==
LOC: M PLALAB 12:12
PROVIDERS: ATTEND Family Medicine
DX: E78.2 Mixed hyperlipidemia (principal); I10 Essential (primary) hypertension; N92.6 Irregular menstruation, unspecified; R53.83 Other fatigue

== ENCOUNTER → 2020-11-08 | Outpatient (CLI) | payer OTHER ==
--- NOTE | 2020-11-09 06:22 | REPPI ---
INDICATION: R06.02 SHORTNESS OF BREATH COMPARISON: 06/28/2019, 09/11/2020 TECHNIQUE: PA and lateral. FINDINGS: The mediastinum and cardiac silhouette are normal. The lung laughlin are clear and without acute consolidation, effusion, or pneumothorax. The skeletal structures are intact and normal. IMPRESSION: No acute cardiopulmonary process. <Electronically signed by Srinivas Ernandez > 11/09/20 0619
== END ==
LOC: M PLAIMG 13:30
PROVIDERS: ATTEND Family Medicine
DX: R06.02 Shortness of breath (principal)

== ENCOUNTER 2020-11-18 01:31 | Observation (INO) | payer OTHER ==
[~2020-11-18] VITALS: Ht 162.6 cm; Wt 124.5 kg
[~2020-11-18 01:31] MED LIST changes: -BANO25CA PO; +DIPH-319 PO
[2020-11-18] MEDS ORDERED: MELO15TA28 PO (01:53)
[2020-11-18] MEDS ORDERED: ALBUTEROL 90 MCG/ACT 8GM HFA INHALER INH ONE (03:10)
[2020-11-18 04:55] LABS: BASO # 0.1 10^3/uL (0.0-0.2); BASO % 0.6 % (0.0-1.0); EOS # 0.3 10^3/uL (0.0-0.5); EOS % 3.2 % (0.0-3.0); HEMATOCRIT 43.6 % (36.0-47.0); HEMOGLOBIN 14.3 g/dl (12.0-15.5); LYMPH # 3.6 10^3/uL (1.5-5.0); LYMPH % 37.9 % (24.0-44.0); MEAN CORPUSCULAR HEMOGLOBIN 29.9 pg (27.0-33.0); MEAN CORPUSCULAR HGB CONC 32.8 g/dl (32.0-36.5); MEAN CORPUSCULAR VOLUME 91.2 fl (80.0-96.0); MONO # 0.5 10^3/uL (0.0-0.8); MONO % 5.7 % (2.0-8.0); NEUTROPHILS % 52.3 % (36.0-66.0); PLATELET COUNT, AUTOMATED 352 10^3/uL (150-450); RED BLOOD COUNT 4.78 10^6/uL (4.00-5.40); WHITE BLOOD COUNT 9.6 10^3/uL (4.0-10.0)
[2020-11-18 05:06] LABS: INR 0.92; PROTHROMBIN TIME 12.6 SECONDS (12.5-14.3)
[2020-11-18 05:07] LABS: PARTIAL THROMBOPLASTIN TIME 25.8 SECONDS (24.2-38.5)
[2020-11-18 05:23] LABS: D-DIMER QUANT 673.34 ng/ml (<500)
[2020-11-18 05:29] LABS: ALBUMIN 3.2 GM/DL (3.2-5.2); ALT/SGPT 17 U/L (12-78); BILIRUBIN,DIRECT 0.1 MG/DL (0.0-0.2); BILIRUBIN,TOTAL 0.3 MG/DL (0.2-1.0); BLOOD UREA NITROGEN 13 MG/DL (7-18); CALCIUM LEVEL 9.8 MG/DL (8.5-10.1); CARBON DIOXIDE LEVEL 28 MEQ/L (21-32); CHLORIDE LEVEL 106 MEQ/L (98-107); CK-MB VALUE MASS < 1.0 NG/ML (<3.6); CPK CREATINE PHOSPHOKINASE 149 U/L (26-192); CREATININE FOR GFR 0.98 MG/DL (0.55-1.30); GLOMERULAR FILTRATION RATE > 60.0 (>58); GLUCOSE, FASTING 95 MG/DL (70-100); LIPASE 98 U/L (73-393); MB/CK RELATIVE INDEX 0.67 (< OR =4); NT-PRO BNP 18 PG/ML (<125); POTASSIUM SERUM 4.4 MEQ/L (3.5-5.1); SODIUM LEVEL 140 MEQ/L (136-145); TOTAL PROTEIN 6.7 GM/DL (6.4-8.2); TROPONIN I < 0.02 NG/ML (< 0.10)
[2020-11-18 05:40] LABS: HCG, SERUM QUALITATIVE NEGATIVE (NEGATIVE)
[2020-11-18] MEDS ORDERED: ISOVUE-370 76% 100ML VIAL As Ordered ONE (06:03)
--- NOTE | 2020-11-18 06:53 | REPVR ---
PROCEDURE INFORMATION: Exam: XR Chest Exam date and time: 11/18/2020 5:58 AM Age: 45 years old Clinical indication: Other: Chest pain TECHNIQUE: Imaging protocol: XR of the chest. Views: 1 view. COMPARISON: CR CHEST 2 VIEWS 11/08/2020 1:53 PM FINDINGS: Lungs: Unremarkable. No consolidation. Pleural spaces: Unremarkable. No pleural effusion. No pneumothorax. Heart/Mediastinum: Unremarkable. No cardiomegaly. Bones/joints: Unremarkable. IMPRESSION: No acute findings. Electronically signed by: Shakeel Laureano On 11/18/2020 06:53:05 AM
--- NOTE | 2020-11-18 06:56 | REPVR ---
PROCEDURE INFORMATION: Exam: CTA Chest With Contrast Exam date and time: 11/18/2020 5:58 AM Age: 45 years old Clinical indication: Chest wall pain; Additional info: Chest pain- R/O pulmonary embolus TECHNIQUE: Imaging protocol: Computed tomographic angiography of the chest with contrast. 3D rendering (Not supervised by radiologist): MIP and/or 3D reconstructed images were created by the technologist. Radiation optimization: All CT scans at this facility use at least one of these dose optimization techniques: automated exposure control; mA manages CT study there I/or kV adjustment per patient size (includes targeted exams where dose is matched to clinical indication); or iterative reconstruction. Contrast material: ISO; Contrast volume: 75 ml; Contrast route: INTRAVENOUS (IV); COMPARISON: CT ANGIO CHEST 07/12/2019 9:32 PM FINDINGS: Pulmonary arteries: The study is nondiagnostic for the evaluation of pulmonary emboli due to non opacification of the pulmonary arteries. Aorta: Predominant opacification is noted to the thoracic aorta which is normal in caliber with no evidence of dissection. Lungs: Unremarkable. No consolidation. No masses. Pleural spaces: Unremarkable. No pneumothorax. No pleural effusion. Heart: Unremarkable. No cardiomegaly. No pericardial effusion. Lymph nodes: Unremarkable. No enlarged lymph nodes. Bones/joints: Unremarkable. No acute fracture. Soft tissues: Unremarkable. IMPRESSION: 1. Nondiagnostic study for the evaluation of pulmonary emboli. No dilated pulmonary trunk or dilated right heart seen to suggest right heart strain or significant pulmonary hypertension. If further evaluation of the pulmonary arteries is warranted, V/Q scan or repeat CT angiogram may be considered. 2. Normal caliber thoracic aorta with no evidence of dissection. Electronically signed by: Shakeel Laureano On 11/18/2020 06:56:29 AM
[2020-11-18] MEDS ORDERED: FLUT1INH2 INH (07:44)
[2020-11-18] MEDS ORDERED: FERR325T19 PO (07:44)
[2020-11-18] MEDS ORDERED: MAXI1000 PO (07:44)
[2020-11-18] MEDS ORDERED: FURO20TA2 PO (07:44)
--- NOTE | 2020-11-18 07:47 | REPVR ---
PROCEDURE INFORMATION: Exam: US Duplex Lower Extremity Veins, Bilateral Exam date and time: 11/18/2020 7:39 AM Age: 45 years old Clinical indication: Other: SOB; Additional info: Dyspnea elevated d-dimer TECHNIQUE: Imaging protocol: Real-time duplex ultrasound of the extremities with 2-D king scale, color Doppler flow and spectral waveform analysis with image documentation. Complete exam focused on the bilateral lower extremity veins. COMPARISON: US Duplex, Ext,LOWER veins,unilat 02/24/2019 8:58 PM FINDINGS: Right deep veins: Unremarkable. The common femoral, femoral, proximal profunda femoral and popliteal veins are patent without thrombus. Normal Doppler waveforms. Normal compressibility and/or augmentation response. Right superficial veins: Saphenofemoral junction is patent without thrombus. Left deep veins: Unremarkable. The common femoral, femoral, proximal profunda femoral and popliteal veins are patent without thrombus. Normal Doppler waveforms. Normal compressibility and/or augmentation response. Left superficial veins: Saphenofemoral junction is patent without thrombus. Soft tissues: Unremarkable. IMPRESSION: No evidence of deep vein thrombosis. Electronically signed by: Shakeel Laureano On 11/18/2020 07:47:36 AM
[2020-11-18] MEDS ORDERED: LOSA50TA88 PO (08:12)
[2020-11-18] MEDS ORDERED: EPIP0.3I2 IM (08:12)
[2020-11-18] MEDS ORDERED: FLUTISP NARES (08:12)
[2020-11-18] MEDS: FERROUS SULFATE 325MG TAB PO SCH ×3 (09:00→21:27)
[2020-11-18] MEDS ORDERED: ALBUTEROL SULFATE 2.5 MG/0.5 ML INH NEB SOLN NEB PRN (10:40)
[2020-11-18] MEDS ORDERED: MOM 30ML SUSPENSION UDC PO PRN (10:40)
[2020-11-18] MEDS ORDERED: FLUTICASONE PROP 0.05% NASAL SPRAY 16 GM (FLONASE) NARES PRN (10:40)
[2020-11-18] MEDS ORDERED: ACETAMINOPHEN TAB 650MG DOSE (2X325MG) PO PRN (10:40)
[2020-11-18] MEDS ORDERED: diphenhydrAMINE 25MG CAP PO PRN (10:40)
--- NOTE | 2020-11-18 12:35 | HPEPDOC ---
[facility] Medical History & Physical Date of Admission November 18, 2020 Date of Service: November 18, 2020 Primary Care Physician: ALISHA LUX MD Attending Physician: RAGHAVENDRA STILES MD History and Physical CHIEF COMPLAINT: Shortness of breath HISTORY OF PRESENT ILLNESS: Patient is a 45-year-old female with a past medical history significant for asthma, obstructive sleep apnea, obesity, fibromyalgia, seasonal allergies and hypertension who presented to the [facility] emergency department with complaint of shortness of breath. Patient states that she has had shortness of breath for more than a month now. She has been evaluated at an urgent care as well as by her primary care physician. She states that she has not always short of breath and that her shortness of breath occurs at random times. The shortness of breath is not associated with exertion. She states that sometimes she feels like it is difficult to take a deep breath. She says that when she takes a deep breath it feels like a wall is stopping her from breathing. She denies any pain on deep inspiration. Patient also states that she was recently talking to her fianc on the phone and by the end of the conversation, she felt winded. She states that when this happens, she does use her albuterol inhaler, which does seem to help. She was recently seen by her founder and president, Dr. Patton, who had performed an echocardiogram on her. She otherwise denies any hemoptysis. She denies any recent periods of immobilization or long travel. She has any previous history of pulmonary embolism or DVTs. She denies any family history is of pulmonary embolism or DVTs. On presentation to the emergency department, the patient was vitally stable. She was not hypoxic and was having O2 saturation of 100% on room air. A chest x-ray was obtained which did not demonstrate any significant findings. A d-dimer was in ordered on the patient which was elevated at 673. This was followed up with a CT angiography of the chest which was a nondiagnostic study for the evaluation of pulmonary emboli as there was nonopacification of the pulmonary arteries. It was noted that there was no dilated pulmonary trunk or dilated right heart strain to suggest significant pulmonary hypertension. Hospitalist service was then consulted for evaluation and management for shortness of breath. PAST MEDICAL HISTORY: 1. Asthma 2. Hypertension 3. Obstructive sleep apnea on CPAP 4. Fibromyalgia/chronic pain 5. Chronic fatigue 6. Seasonal allergies 7. Obesity PAST SURGICAL HISTORY: 1. section 4 2. Right knee surgery 3. Cholecystectomy 4. Left tympanoplasty 5. D&C SOCIAL HISTORY: Patient lives at home with her fianc, son and her son's girlfriend. She is a former smoker. She started smoking at the age of 18 and smoked approximately one half pack per day and quit approximately 9 years ago. She denies any current alcohol use. She denies any IV or illicit drug use. She is independent with her ADLs. Her primary care physician is Dr. Lux. Her founder and president, Dr. Patton. Her barrer and tacker is Dr. Mora. FAMILY HISTORY: Patient's mother has a history of lupus, Non-Hodgkin's lymphoma and lung cancer. Her father has a history of a stroke. She has 2 brothers, one with a history of melanoma. She denies any family history of pulmonary embolisms or deep venous thrombosis. ALLERGIES: Please see below. REVIEW OF SYSTEMS: CONSTITUTIONAL: Denies fevers, chills. Denies unintentional weight loss or weight gain. Admits to chronic fatigue. HEENT:. Denies difficulty swallowing. Denies pain on swallowing. CARDIOVASCULAR:. Denies chest pain, palpitations or feelings of the heart racing. denies chest pressure. RESPIRATORY: Admits to intermittent shortness of breath that is not associated with exertion. Admits discharge of breath when lying flat on back, but denies shortness of breath when lying on side. Denies any wheezing. Denies coughing. Denies pain on deep inspiration. Denies hemoptysis GASTROINTESTINAL: Denies abdominal pain, nausea, vomiting, diarrhea or constipation. GENITOURINARY: Denies dysuria or increased frequency or urgency. Denies hematuria. SKIN:. Denies any rashes or lesions. MUSCULOSKELETAL:. Admits to chronic pain. NEUROLOGICAL:. Denies any changes in gait or speech. PSYCHIATRIC: Denies any depression or anxiety. ENDOCRINE: Denies heat intolerance or cold intolerance. Denies history of diabetes. HEMATOLOGIC/LYMPHATIC:. Denies any easy bruising or bleeding. Denies any history of deep venous thrombosis or pulmonary embolism. HOME MEDICATIONS: Please see below. PHYSICAL EXAMINATION: VITAL SIGNS: Temperature 97.8, pulse 84, respiratory rate 20, blood pressure 154/92, pulse oximetry 100 % on room air. GENERAL APPEARANCE: Patient is awake, alert, oriented. She does not appear in acute distress she sitting up comfortably in stretcher. HEENT:, Atraumatic normocephalic. Eyes are nonicteric. Trachea is midline. Mucous membranes are pink and moist. Neck is [place]. CARDIOVASCULAR:. Normal S1, S2., Regular rate and rhythm. No clicks rubs or murmurs. No JVD LUNGS:. Clear vesicular breath sounds bilaterally. Good respiratory effort. No wheezes rhonchi or rales. Symmetric chest expansion. ABDOMEN: Morbidly obese. Soft nondistended, nontender. Normoactive bowel sounds throughout. EXTREMITIES: 1+ pitting edema in bilateral lower extremities. Full equal pulses in bilateral upper and lower extremities. No calf tenderness. NEUROLOGICAL: No Focal neurological deficits. PSYCHIATRIC: Mood and Affect appear appropriate. LABORATORY DATA: See below. IMAGING: PROCEDURE INFORMATION: Exam: XR Chest Exam date and time: 11/18/2020 5:58 AM Age: 45 years old Clinical indication: Other: Chest pain TECHNIQUE: Imaging protocol: XR of the chest. Views: 1 view. COMPARISON: CR CHEST 2 VIEWS 11/08/2020 1:53 PM FINDINGS: Lungs: Unremarkable. No consolidation. Pleural spaces: Unremarkable. No pleural effusion. No pneumothorax. Heart/Mediastinum: Unremarkable. No cardiomegaly. Bones/joints: Unremarkable. IMPRESSION: No acute findings. Electronically signed by: Shakeel Laureano On 11/18/2020 06:53:05 AM PROCEDURE INFORMATION: Exam: CTA Chest With Contrast Exam date and time: 11/18/2020 5:58 AM Age: 45 years old Clinical indication: Chest wall pain; Additional info: Chest pain- R/O pulmonary embolus TECHNIQUE: Imaging protocol: Computed tomographic angiography of the chest with contrast. 3D rendering (Not supervised by radiologist): MIP and/or 3D reconstructed images were created by the technologist. Radiation optimization: All CT scans at this facility use at least one of these dose optimization techniques: automated exposure control; mA manages CT study there I/or kV adjustment per patient size (includes targeted exams where dose is matched to clinical indication); or iterative reconstruction. Contrast material: ISO; Contrast volume: 75 ml; Contrast route: INTRAVENOUS (IV); COMPARISON: CT ANGIO CHEST 07/12/2019 9:32 PM FINDINGS: Pulmonary arteries: The study is nondiagnostic for the evaluation of pulmonary emboli due to non opacification of the pulmonary arteries. Aorta: Predominant opacification is noted to the thoracic aorta which is normal in caliber with no evidence of dissection. Lungs: Unremarkable. No consolidation. No masses. Pleural spaces: Unremarkable. No pneumothorax. No pleural effusion. Heart: Unremarkable. No cardiomegaly. No pericardial effusion. Lymph nodes: Unremarkable. No enlarged lymph nodes. Bones/joints: Unremarkable. No acute fracture. Soft tissues: Unremarkable. IMPRESSION: 1. Nondiagnostic study for the evaluation of pulmonary emboli. No dilated pulmonary trunk or dilated right heart seen to suggest right heart strain or significant pulmonary hypertension. If further evaluation of the pulmonary arteries is warranted, V/Q scan or repeat CT angiogram may be considered. 2. Normal caliber thoracic aorta with no evidence of dissection. Electronically signed by: Shakeel Laureano On 11/18/2020 06:56:29 AM PROCEDURE INFORMATION: Exam: US Duplex Lower Extremity Veins, Bilateral Exam date and time: 11/18/2020 7:39 AM Age: 45 years old Clinical indication: Other: SOB; Additional info: Dyspnea elevated d-dimer TECHNIQUE: Imaging protocol: Real-time duplex ultrasound of the extremities with 2-D king scale, color Doppler flow and spectral waveform analysis with image documentation. Complete exam focused on the bilateral lower extremity veins. COMPARISON: US Duplex, Ext,LOWER veins,unilat 02/24/2019 8:58 PM FINDINGS: Right deep veins: Unremarkable. The common femoral, femoral, proximal profunda femoral and popliteal veins are patent without thrombus. Normal Doppler waveforms. Normal compressibility and/or augmentation response. Right superficial veins: Saphenofemoral junction is patent without thrombus. Left deep veins: Unremarkable. The common femoral, femoral, proximal profunda femoral and popliteal veins are patent without thrombus. Normal Doppler waveforms. Normal compressibility and/or augmentation response. Left superficial veins: Saphenofemoral junction is patent without thrombus. Soft tissues: Unremarkable. IMPRESSION: No evidence of deep vein thrombosis. Electronically signed by: Shakeel Laureano On 11/18/2020 07:47:36 AM MICROBIOLOGY: Please see below. ASSESSMENT: Patient is a 45-year-old female with a past medical history significant for asthma, obstructive sleep apnea, obesity, thyroid nausea and chronic pain syndrome who presented to the [facility] with a complaint of the shortness of breath, which has been going on for approximately 1 month. Presentation to the regarding the patient was vitally stable. D-dimer was elevated at 673. Angiography CT order was nondiagnostic due to non-opacific ation of the pulmonary arteries. Patient was admitted for observation and possible asthma exacerbation. . PLAN: 1. Shortness of breath -Etiology of patient's shortness of breath is likely multifactorial. Unlikely to be a pulmonary embolism. She did receive a d-dimer which was elevated at 673. A CTA was ordered which demonstrated nondiagnostic study for pulmonary embolism as there is nonopacification of the pulmonary arteries. The reason for this is likely secondary to delayed timing of the dye as well as the patient's obesity. His symptomatology is not consistent with pulmonary embolism. Additionally, she is not tachycardic nor hypoxic. There is no evidence of right heart strain on EKG and no dilated pulmonary pulmonary trunk to suggest significant pulmonary hypertension. Ultrasound of the lower extremities was negative for any DVT. Patient has been evaluated in the emergency department previously short of breath, noted to have an elevated d-dimer but negative CTA. Given her obesity, D-dimer could be expected be falsely elevated in this population. -Her shortness of breath is likely a combination of her obesity and possible component of asthma. She does not appear to be in acute exacerbation and is currently not wheezing. However, she states that when she uses her albuterol. Sh e does feel better. -Patient to be admitted for observation. We'll continue her on her asthma inhalers. We'll add nebulizers as needed. Additionally, will start a short 5 day course of oral prednisone 40 mg in case she is having a mild exacerbation -Patient has recently been evaluated by her founder and president with an echocardiogram on November 08. Additionally, patient is scheduled for a stress test through her founder and president. -And history discharge in 24 hrs. 2. HTN -Willcontinue patient's Cozaar -Continue Lasix 3. Asthma -As stated above. Patient may be having a mild exacerbation. We'll continue her inhalers. Will order nebulizers when necessary. Additionally, we'll start her on a short 5 day course of oral prednisone 40 mg. 4. Seasonal allergies -We'll continue patient's Nelda -Benadryl when necessary 5. Chronic fatigue -Patient was advised that her chronic fatigue is likely multifactorial in combination with obesity and possibly her medications. She is on multiple medications for her seasonal allergies which can have a sedating effect. Additionally, patient is recommended to follow up with her barrer and tacker to see if her CPAP pressure may need to be titrated as undertreated FELICITA may lead to fatigue/tiredness. 6. Obesity with BMI 47.7 -Patient advised that obesity is a chronic inflammatory condition likely contributed to both her father myalgia, chronic fatigue and shortness of breath. Patient advised that weight loss and diet would benefit her. She may be a candidate for Ozempic for weight loss outpatient. Patient can follow-up with her primary care physician, to inquire about this. 7. Fibromyalgia/chronic pain -Continue Mobic 8. FELICITA -Patient compliant with CPAP at home. -Oxygen therapy orders 8. DVT prophylaxis -Lovenox DISPOSITION: Patient admitted for observation. Anticipate discharge home in 24 hours Vital Signs Vital Signs Date Time Temp Pulse Resp B/P (MAP) Pulse Ox O2 Delivery O2 Flow Rate FiO2 11/18/20 06:31 73 18 145/67 (93) 98 Room Air 11/18/20 01:32 97.8 Laboratory Data Labs 24H Laboratory Tests 2 11/18/20 04:43: Immature Granulocyte % (Auto) 0.3, Neutrophils (%) (Auto) 52.3, Lymphocytes (%) (Auto) 37.9, Monocytes (%) (Auto) 5.7, Eosinophils (%) (Auto) 3.2H, Basophils (%) (Auto) 0.6, Neutrophils # (Auto) 5.0, Lymphocytes # (Auto) 3.6, Monocytes # (Auto) 0.5, Eosinophils # (Auto) 0.3, Basophils # (Auto) 0.1, Nucleated Red Blood Cells % (auto) 0.0, Prothrombin Time 12.6, Prothromb Time International Ratio 0.92, Activated Partial Thromboplast Time 25.8, D-Dimer, Quantitative 673.34H, Anion Gap 6L, Glomerular Filtration Rate > 60.0, Calcium Level 9.8, Total Bilirubin 0.3, Direct Bilirubin 0.1, Aspartate Amino Transf (AST/SGOT) 6L, Alanine Aminotransferase (ALT/SGPT) 17, Alkaline Phosphatase 57, Total Creatine Kinase 149, Creatine Kinase MB < 1.0, Creatine Kinase MB Relative Index 0.67, Troponin I < 0.02, GJ-Nwp-[id number]-Type Natriuretic Peptide 18, Total Protein 6.7, Albumin 3.2, Albumin/Globulin Ratio 0.9L, Lipase 98, Human Chorionic Gonadotropin, Qual NEGATIVE CBC/BMP Laboratory Tests 11/18/20 04:43 Microbiology Microbiology 11/18/20 Respiratory Virus Panel (PCR) ([facility]) - Final, Complete Home Medications Scheduled Ferrous Sulfate (Ferosul) 325 Mg Tablet, 325 MG PO TID Fexofenadine HCl (Nelda Allergy) 180 Mg Tab, 180 MG PO DAILY Fluticasone/Vilanterol (Breo Ellipta 100-25 Mcg INH) 1 Inh Inh, 1 PUFF PO QPM Furosemide (Furosemide) 20 Mg Tablet, 20 MG PO DAILY Losartan Potassium (Losartan Potassium) 50 Mg Tablet, 50 MG PO QHS Meloxicam (Meloxicam) 15 Mg Tablet, 15 MG PO DAILY Norethindrone-Ethinyl Estrad (Ortho-Novum 7-7-7-28 Tablet) 1 Each Tablet, 1 TAB PO QPM Scheduled PRN Acetaminophen (Pain Relief Extra Strength) 500 Mg Tablet, 1,000 MG PO Q8H PRN f or PAIN Albuterol Sulfate (Ventolin Hfa) 18 Gm Hfa.aer.ad, 2 PUFF INH Q4H PRN for SOB/WHEEZING Diphenhydramine HCl (Banophen) 25 Mg Cap, 25 MG PO QHS PRN for ALLERGY SYMPTOMS Epinephrine (Epipen 2-Jaden) 0.3 Mg/0.3 Ml Auto.injct, 0.3 MG IM ONCE PRN for ANAPHYLAXIS Fluticasone Propionate (Fluticasone Propionate) 16 Gm [place].susp, 1 SPRAY NARES BID PRN for CONGESTION Allergies Coded Allergies: egg (Verified Allergy, Severe, anaphylaxis, 01/26/19) tomato (Verified Allergy, Severe, anaphylaxis, 01/26/19) [place] (Verified Allergy, Intermediate, throat itching, 01/26/19) clavulanic acid (Verified Allergy, Intermediate, 01/26/19) rash Sulfa (Sulfonamide Antibiotics) (Verified Allergy, Mild, 01/26/19) rash amoxicillin (Verified Allergy, Mild, 01/26/19) rash Nitrofuran Analogues (Verified Allergy, Unknown, 01/26/19) rash nitrofurantoin (Verified Allergy, Unknown, HIVES, 09/11/20) GME ATTESTATION My faculty preceptor for this patient encounter was physically present during the encounter and was fully available. All aspects of the patient interview, examination, medical decision making process, and medical care plan development were reviewed and approved by the faculty preceptor. The faculty preceptor is a stewart and concurs with the plan as stated in the body of this note and will attest to such by his/her cosignature. ATTENDING NOTE 45 yo W with obesity, asthma and recent workup for subacute intermittent dyspnea without specific associations who presented to the ED for the same and was found to have a grossly normal examination with clear chest with good breath sounds, saturation of 100% on room air, normal BP and RR with investigations showing a normal CXR, no leukocytosis but noted elevated d-dimer. Due to the elevated d- dimer (which of note, was even higher on prior studies accompanied by a negative CTA) she had a CTA that was unfortunately non-diagnostic due to contrast timing and LE venous doppler US that were negative for DVTs. Internal medicine was consulted for admission and will admit for observation for possible mild asthma exacerbation with very low suspicion for a PE. A-FIB/CHADSVASC A-FIB History Current/History of A-Fib/PAF?: No JOHN CROWLEY DO November 18, 2020 12:35 RAGHAVENDRA STILES MD November 18, 2020 13:02
[2020-11-18 12:36] VITALS: BP 153/87
[2020-11-18] MEDS: FUROSEMIDE 20 MG TAB PO SCH (13:32)
[2020-11-18] MEDS: predniSONE 20 MG TAB PO SCH (13:32)
[2020-11-18] MEDS: ENOXAPARIN 40MG/0.4ML SYRINGE (J1650 PER 10MG) SC SCH (13:34)
--- NOTE | 2020-11-18 13:51 | ECGEPIP ---
[facility] - ED Test Date: 2020-11-18 Pat Name: ADRI DUARTE Department: Room: - Gender: Female Baseball Glove Shaper: paulette orosco : 1975 Requested By: ALEX ULRICH Order Number: [id number] Reading MD: Jesica Cuellar Measurements Intervals [place] Rate: 76 P: 39 VT: 138 QRS: 5 QRSD: 86 T: 9 QT: 394 QTc: 443 Interpretive Statements Normal sinus rhythm Electronically Signed on 11-18-2020 13:51:13 EDT by Jesica Cuellar
--- NOTE | 2020-11-18 13:51 | ECGEPIP ---
[facility] - ED Test Date: 2020-11-18 Pat Name: ADRI DUARTE Department: Room: - Gender: Female Retirement Specialist: Aravind ROSALES : 1975 Requested By: ALEX ULRICH Order Number: [id number] Reading MD: Jesica Cuellar Measurements Intervals [place] Rate: 72 P: 34 VA: 138 QRS: 0 QRSD: 86 T: 12 QT: 404 QTc: 442 Interpretive Statements Normal sinus rhythm similar 11/18/20 Electronically Signed on 11-18-2020 13:51:29 EDT by Jesica Cuellar
[2020-11-18 14:00] VITALS: BP 150/86
[2020-11-18] MEDS: MELOXICAM (MOBIC) 7.5 MG TAB PO SCH (14:35)
[2020-11-18] MEDS: FEXOFENADINE 60 MG TAB PO SCH (14:35)
[2020-11-18] MEDS: ADVAIR HFA 115/21MCG INHALER INH SCH (19:29)
[2020-11-18] MEDS ORDERED: LOSARTAN 50MG TABLET PO SCH (21:00)
[2020-11-18 21:15] VITALS: BP 138/86
[2020-11-18 21:27] VITALS: BP 138/86
[2020-11-19 06:00] VITALS: BP 169/90
[2020-11-19 06:25] LABS: HEMATOCRIT 43.5 % (36.0-47.0); HEMOGLOBIN 14.5 g/dl (12.0-15.5); MEAN CORPUSCULAR HEMOGLOBIN 30.3 pg (27.0-33.0); MEAN CORPUSCULAR HGB CONC 33.3 g/dl (32.0-36.5); PLATELET COUNT, AUTOMATED 363 10^3/uL (150-450); RED BLOOD COUNT 4.78 10^6/uL (4.00-5.40); WHITE BLOOD COUNT 11.6 10^3/uL (4.0-10.0)
[2020-11-19 06:54] LABS: BLOOD UREA NITROGEN 10 MG/DL (7-18); CALCIUM LEVEL 9.2 MG/DL (8.5-10.1); CARBON DIOXIDE LEVEL 27 MEQ/L (21-32); CHLORIDE LEVEL 107 MEQ/L (98-107); GLOMERULAR FILTRATION RATE > 60.0 (>58); GLUCOSE, FASTING 114 MG/DL (70-100); SODIUM LEVEL 139 MEQ/L (136-145)
[2020-11-19] MEDS: ADVAIR HFA 115/21MCG INHALER INH SCH (07:30)
[2020-11-19] MEDS ORDERED: PRED20TA PO (08:16)
--- NOTE | 2020-11-19 08:26 | DS.PDOC ---
Discharge Summary General Date of Admission November 18, 2020 at 10:33 Date of Discharge 11/19/2020 Attending Physician: RAGHAVENDRA STILES MD Discharge Summary PROCEDURES PERFORMED DURING STAY: None ADMITTING DIAGNOSES: Shortness of breath DISCHARGE DIAGNOSES: Mild asthma exacerbation PAST MEDICAL HISTORY: Hypertension Obstructive sleep apnea on CPAP Fibromyalgia/chronic pain Chronic fatigue Seasonal allergies Obesity COMPLICATIONS/CHIEF COMPLAINT: Shortness Of Breath. HISTORY OF PRESENT ILLNESS: 45-year-old W with a past medical history significant for asthma, obstructive sleep apnea, obesity, fibromyalgia, seasonal allergies and hypertension who presented to the [facility] emergency department with complaint of shortness of breath. Patient reported that she has had shortness of breath for more than a month now and had been evaluated at an urgent care as well as by her primary care physician but it was particularly worse in the last 2 days. She sta amirta that her albuterol inhale seemed to help. She was recently seen by her design engineer agricultural equipment, Dr. Patton, who recently performed an echocardiogram on her. She denied any recent periods of immobilization or long travel. She has any previous history of pulmonary embolism or DVTs. HOSPITAL COURSE: On presentation to the emergency department, she was hemodynamically stable. She was not hypoxic and was having O2 saturation of 100% on room air. A chest x-ray was obtained which did not demonstrate any significant findings. A d-dimer was in ordered on the patient which was elevated at 673. This was followed up with a CT angiography of the chest which was a nondiagnostic study for the evaluation of pulmonary emboli as there was non-opacification of the pulmonary arteries. It was noted that there was no dilated pulmonary trunk or dilated right heart strain to suggest significant pulmonary hypertension. Hospitalist service was then consulted for evaluation and management for shortness of breath. We admitted her for a mild asthma exacerbation and started her on prednisone 40mg PO. She is now being discharged home to follow up with her PCP. DISCHARGE MEDICATIONS: Please see below. ALLERGIES: Please see below. PHYSICAL EXAMINATION ON DISCHARGE: VITAL SIGNS: Please see below. GENERAL APPEARANCE: Patient is awake, alert, oriented. She does not appear in acute distress she sitting up comfortably in stretcher. HEENT:, Atraumatic normocephalic. Eyes are nonicteric. Trachea is midline. Mucous membranes are pink and moist. Neck is byrne. CARDIOVASCULAR:. Normal S1, S2., Regular rate and rhythm. No clicks rubs or murmurs. No JVD LUNGS: Clear vesicular breath sounds bilaterally. Good respiratory effort. No wheezes rhonchi or rales. Symmetric chest expansion. ABDOMEN: Morbidly obese. Soft nondistended, nontender. Normoactive bowel sounds throughout. EXTREMITIES: Nonpitting edema in bilateral lower extremities. Full equal pulses in bilateral upper and lower extremities. No calf tenderness. NEUROLOGICAL: No Focal neurological deficits. PSYCHIATRIC: Mood and Affect appear appropriate. LABORATORY DATA: Please see below. IMAGING: CXR: Lungs: Unremarkable. No consolidation. Pleural spaces: Unremarkable. No pleural effusion. No pneumothorax. Heart/Mediastinum: Unremarkable. No cardiomegaly. Bones/joints: Unremarkable. IMPRESSION: No acute findings. CT ANGIO CHEST: Pulmonary arteries: The study is nondiagnostic for the evaluation of pulmonary emboli due to non opacification of the pulmonary arteries. Aorta: Predominant opacification is noted to the thoracic aorta which is normal in caliber with no evidence of dissection. Lungs: Unremarkable. No consolidation. No masses. Pleural spaces: Unremarkable. No pneumothorax. No pleural effusion. Heart: Unremarkable. No cardiomegaly. No pericardial effusion. Lymph nodes: Unremarkable. No enlarged lymph nodes. Bones/joints: Unremarkable. No acute fracture. Soft tissues: Unremarkable. IMPRESSION: 1. Nondiagnostic study for the evaluation of pulmonary emboli. No dilated pulmonary trunk or dilated right heart seen to suggest right heart strain or significant pulmonary hypertension. If further evaluation of the pulmonary arteries is warranted, V/Q scan or repeat CT angiogram may be considered. 2. Normal caliber thoracic aorta with no evidence of dissection. US Duplex Lower Extremity Veins, Bilateral Right deep veins: Unremarkable. The common femoral, femoral, proximal profunda femoral and popliteal veins are patent without thrombus. Normal Doppler waveforms. Normal compressibility and/or augmentation response. Right superficial veins: Saphenofemoral junction is patent without thrombus. Left deep veins: Unremarkable. The common femoral, femoral, proximal profunda femoral and popliteal veins are patent without thrombus. Normal Doppler waveforms. Normal compressibility and/or augmentation response. Left superficial veins: Saphenofemoral junction is patent without thrombus. Soft tissues: Unremarkable. IMPRESSION: No evidence of deep vein thrombosis. PROGNOSIS: Good ACTIVITY: As tolerated DIET: 2g sodium DISCHARGE PLAN: Home with 3 more day sof prednisone 40mg and PCP follow up DISPOSITION: Home DISCHARGE INSTRUCTIONS: Home with 3 more day sof prednisone 40mg and PCP follow up ITEMS TO FOLLOWUP ON ON OUTPATIENT: SOB DISCHARGE CONDITION: Stable TIME SPENT ON DISCHARGE: 40 minutes. Vital Signs/I&Os Vital Signs Date Time Temp Pulse Resp B/P (MAP) Pulse Ox O2 Delivery O2 Flow Rate FiO2 11/19/20 06:00 97.3 78 17 169/90 (116) 97 Room Air I&O- Last 24 Hours up to 6 AM 11/19/20 05:59 Intake Total 2350 ml Output Total 2550 ml Balance -200 ml Laboratory Data Labs 24H Laboratory Tests 2 11/18/20 22:09: Troponin I < 0.02 11/19/20 06:11: Nucleated Red Blood Cells % (auto) 0.0, Anion Gap 5L, Glomerular Filtration Rate > 60.0, Calcium Level 9.2 CBC/BMP Laboratory Tests 11/19/20 06:11 Microbiology Microbiology 11/18/20 Respiratory Virus Panel (PCR) ([facility]) - Final, Complete Discharge Medications Scheduled Ferrous Sulfate (Ferosul) 325 Mg Tablet, 325 MG PO TID, (Reported) Fexofenadine HCl (Nelda Allergy) 180 Mg Tab, 180 MG PO DAILY, (Reported) Fluticasone/Vilanterol (Breo Ellipta 100-25 Mcg INH) 1 Inh Inh, 1 PUFF PO QPM, (Reported) Furosemide (Furosemide) 20 Mg Tablet, 20 MG PO DAILY, (Reported) Losartan Potassium (Losartan Potassium) 50 Mg Tablet, 50 MG PO QHS, (Reported) Meloxicam (Meloxicam) 15 Mg Tablet, 15 MG PO DAILY, (Reported) Norethindrone-Ethinyl Estrad (Ortho-Novum 7-7-7-28 Tablet) 1 Each Tablet, 1 TAB PO QPM, (Reported) Prednisone (Prednisone) 20 Mg Tablet, 40 MG PO DAILY Scheduled PRN Acetaminophen (Pain Relief Extra Strength) 500 Mg Tablet, 1,000 MG PO Q8H PRN for PAIN, (Reported) Albuterol Sulfate (Ventolin Hfa) 18 Gm Hfa.aer.ad, 2 PUFF INH Q4H PRN for SOB/WHEEZING, (Reported) Diphenhydramine HCl (Banophen) 25 Mg Cap, 25 MG PO QHS PRN for ALLERGY SYMPTOMS, (Reported) Epinephrine (Epipen 2-Jaden) 0.3 Mg/0.3 Ml Auto.injct, 0.3 MG IM ONCE PRN for ANAPHYLAXIS, (Reported) Fluticasone Propionate (Fluticasone Propionate) 16 Gm Bethany.susp, 1 SPRAY NARES BID PRN for CONGESTION, (Reported) Allergies Coded Allergies: egg (Verified Allergy, Severe, anaphylaxis, 01/26/19) tomato (Verified Allergy, Severe, anaphylaxis, 01/26/19) Jewell (Verified Allergy, Intermediate, throat itching, 01/26/19) clavulanic acid (Verified Allergy, Intermediate, 01/26/19) rash Sulfa (Sulfonamide Antibiotics) (Verified Allergy, Mild, 01/26/19) rash amoxicillin (Verified Allergy, Mild, 01/26/19) rash Nitrofuran Analogues (Verified Allergy, Unknown, 01/26/19) rash nitrofurantoin (Verified Allergy, Unknown, HIVES, 09/11/20) RAGHAVENDRA STILES MD November 19, 2020 08:26
[2020-11-19] MEDS: FUROSEMIDE 20 MG TAB PO SCH (08:52)
[2020-11-19] MEDS: FEXOFENADINE 60 MG TAB PO SCH (08:52)
[2020-11-19] MEDS: FERROUS SULFATE 325MG TAB PO SCH (08:52)
[2020-11-19] MEDS: predniSONE 20 MG TAB PO SCH (08:52)
[2020-11-19] MEDS: MELOXICAM (MOBIC) 7.5 MG TAB PO SCH (08:52)
[2020-11-19] MEDS: ENOXAPARIN 40MG/0.4ML SYRINGE (J1650 PER 10MG) SC SCH (08:53)
[2020-11-19] MEDS ORDERED: BENZONATATE 100 MG CAP PO SCH (09:00)
[2020-11-19] MEDS ORDERED: BENZ-18 PO (09:51)
== END 2020-11-19 11:15 | disposition home or self-care (01) ==
LOC: M ED 01:31 → M ED INP 10:33 → ENRESERV 10:56 → M 4MAIN 12:36 → M MSPAV 12:44
PROVIDERS: ADMIT Internal Medicine; ATTEND Internal Medicine
DX: J45.21 Mild intermittent asthma with (acute) exacerbation (principal); I10 Essential (primary) hypertension; G47.33 Obstructive sleep apnea (adult) (pediatric); M79.7 Fibromyalgia; R53.82 Chronic fatigue, unspecified; J30.2 Other seasonal allergic rhinitis; E66.9 Obesity, unspecified; Z87.891 Personal history of nicotine dependence; Z91.018 Allergy to other foods; Z91.012 Allergy to eggs; Z79.899 Other long term (current) drug therapy; Z79.52 Long term (current) use of systemic steroids; Z88.0 Allergy status to penicillin; Z88.2 Allergy status to sulfonamides; Z88.1 Allergy status to other antibiotic agents; Z88.8 Allergy status to other drugs, medicaments and biological substances
CPT/HCPCS: 36415; 71045; 71275; 80048; 80076; 82550; 82553; 83690; 83880; 84703; 85025; 85027; 85379; 85610; 85730; 87798; 93005; 93041; 93970; 94640; 94760; 96372; 99285; J1650; J7512; Q9967

== ENCOUNTER → 2021-03-16 | Outpatient (CLI) | payer OTHER ==
[~2021-03-16] MED LIST changes: +BENZ-18 PO; +EPIP0.3I2 IM; +FERR325T19 PO; +FLUT1INH2 INH; +FLUTISP NARES; +LOSA50TA88 PO; +MAXI1000 PO
[2021-03-16 13:34] LABS: HEMATOCRIT 45.4 % (36.0-47.0); HEMOGLOBIN 14.6 g/dl (12.0-15.5); MEAN CORPUSCULAR HEMOGLOBIN 29.6 pg (27.0-33.0); MEAN CORPUSCULAR HGB CONC 32.2 g/dl (32.0-36.5); MEAN CORPUSCULAR VOLUME 91.9 fl (80.0-96.0); PLATELET COUNT, AUTOMATED 319 10^3/uL (150-450); RED BLOOD COUNT 4.94 10^6/uL (4.00-5.40); WHITE BLOOD COUNT 5.9 10^3/uL (4.0-10.0)
[2021-03-16 13:54] LABS: BLOOD UREA NITROGEN 11 MG/DL (7-18); CALCIUM LEVEL 9.5 MG/DL (8.5-10.1); CARBON DIOXIDE LEVEL 28 MEQ/L (21-32); CHLORIDE LEVEL 107 MEQ/L (98-107); CREATININE FOR GFR 0.88 MG/DL (0.55-1.30); FERRITIN 28 NG/ML (8-252); GLOMERULAR FILTRATION RATE > 60.0 (>58); GLUCOSE, FASTING 95 MG/DL (70-100); IRON (FE) 62 UG/DL (50-170); POTASSIUM SERUM 4.3 MEQ/L (3.5-5.1); SODIUM LEVEL 141 MEQ/L (136-145); TOTAL IRON BINDING CAPACITY 388 UG/DL (250-450)
== END ==
LOC: M PLALAB 10:15
PROVIDERS: ATTEND Family Medicine
DX: I10 Essential (primary) hypertension (principal); K62.5 Hemorrhage of anus and rectum

== ENCOUNTER → 2021-04-13 | Outpatient (CLI) | payer OTHER ==
[2021-04-13 15:40] LABS: BLOOD UREA NITROGEN 13 MG/DL (7-18); CALCIUM LEVEL 9.6 MG/DL (8.5-10.1); CARBON DIOXIDE LEVEL 29 MEQ/L (21-32); CHLORIDE LEVEL 104 MEQ/L (98-107); CREATININE FOR GFR 0.95 MG/DL (0.55-1.30); GLOMERULAR FILTRATION RATE > 60.0 (>58); GLUCOSE, FASTING 88 MG/DL (70-100); SODIUM LEVEL 138 MEQ/L (136-145)
[2021-04-13 20:29] LABS: HEMOGLOBIN A1c 5.3 %
== END ==
LOC: M PLALAB 10:43
PROVIDERS: ATTEND Family Medicine
DX: I10 Essential (primary) hypertension (principal)

== ENCOUNTER 2021-07-11 18:44 | Emergency (ER) | payer OTHER ==
[~2021-07-11] VITALS: Ht 162.6 cm; Wt 130.5 kg
[2021-07-11] MEDS ORDERED: FISH1CAP26 (19:06)
[2021-07-11] MEDS ORDERED: GABA-282 (19:06)
[2021-07-11] MEDS ORDERED: METH-1165 (19:06)
[2021-07-11] MEDS ORDERED: KETOROLAC 30 MG/ML 1ML VIAL IM ONE (21:00)
[2021-07-11] MEDS ORDERED: diazePAM 5MG TABLET PO ONE (21:00)
[2021-07-11] MEDS ORDERED: LIDOCAINE 5% (LIDODERM) PATCH TD ONE (21:00)
[2021-07-11] MEDS ORDERED: **NOTE PATIENT COMMENT** MISC XX SCH (21:00)
[2021-07-11] MEDS ORDERED: predniSONE 20 MG TAB PO ONE (22:45)
[2021-07-11 23:37] VITALS: BP 142/80
[2021-07-11] MEDS ORDERED: BACL10TA2 PO (23:49)
[2021-07-11] MEDS ORDERED: PRED20TA PO (23:49)
[2021-07-11] MEDS ORDERED: LIDO5DIS41 TD (23:49)
== END 2021-07-12 | disposition home or self-care (01) ==
LOC: M ED 18:44
DX: M54.50 Low back pain, unspecified (principal); I10 Essential (primary) hypertension; E78.5 Hyperlipidemia, unspecified; J45.909 Unspecified asthma, uncomplicated; K21.9 Gastro-esophageal reflux disease without esophagitis; F32.A Depression, unspecified; Z90.49 Acquired absence of other specified parts of digestive tract; Z88.1 Allergy status to other antibiotic agents; Z88.2 Allergy status to sulfonamides; Z91.012 Allergy to eggs; Z79.899 Other long term (current) drug therapy
CPT/HCPCS: 96372; 99283; J1885; J7512

== ENCOUNTER → 2021-11-07 | Outpatient (CLI) | payer OTHER ==
[~2021-11-07] MED LIST changes: +BACL10TA2 PO; -CEFD1CAP8 PO; +CEFD300C41 PO; +FEXO-117; -FEXO180T58; +FISH1CAP26; +GABA-282; +LIDO5DIS41 TD; -LISI-898; +LISI5TAB11; +LOSA25TA13 PO; -LOSA25TA14 PO; +LOSA50TA28 PO; -LOSA50TA88 PO; +METH-1165; -MOME50SP; +NASO50SP3
== END ==
LOC: M CARPUL 13:55
PROVIDERS: ATTEND Family Medicine
DX: I35.1 Nonrheumatic aortic (valve) insufficiency (principal)

== ENCOUNTER → 2021-11-16 | Outpatient (CLI) | payer OTHER | LOC: M PLAIMG 13:43 | PROVIDERS: ATTEND Orthopaedic Surgery | DX: M24.811 Other specific joint derangements of right shoulder, not elsewhere classified (principal) ==

== ENCOUNTER → 2021-11-26 | Outpatient (CLI) | payer OTHER ==
[2021-11-26 18:10] LABS: ALBUMIN 3.3 GM/DL (3.2-5.2); ALT/SGPT 18 U/L (12-78); BILIRUBIN,TOTAL 0.2 MG/DL (0.2-1.0); BLOOD UREA NITROGEN 15 MG/DL (7-18); CALCIUM LEVEL 9.9 MG/DL (8.5-10.1); CARBON DIOXIDE LEVEL 27 MEQ/L (21-32); CHLORIDE LEVEL 108 MEQ/L (98-107); CHOLESTEROL LEVEL 279 MG/DL (<200); CHOLESTEROL RISK RATIO 4.982 (<5); CREATININE FOR GFR 0.92 MG/DL (0.55-1.30); GLOMERULAR FILTRATION RATE > 60.0 (>58); GLUCOSE, FASTING 87 MG/DL (70-100); HDL CHOLESTEROL 56 MG/DL (>40); LDL CHOLESTEROL 191 MG/DL (<100); NON-HDL-C 223 MG/DL; POTASSIUM SERUM 4.7 MEQ/L (3.5-5.1); SODIUM LEVEL 141 MEQ/L (136-145); TOTAL PROTEIN 7.1 GM/DL (6.4-8.2); TRIGLYCERIDES LEVEL 158 MG/DL (<150)
== END ==
LOC: M PLALAB 15:46
PROVIDERS: ATTEND Family Medicine
DX: I10 Essential (primary) hypertension (principal)

== ENCOUNTER → 2021-12-12 | Outpatient (REF) | payer OTHER ==
[~2021-12-12] MED LIST changes: +ALBU2.5V10 NEB; -ALBU83IN NEB
== END ==
LOC: M SFHCPLAZ 17:26
PROVIDERS: ATTEND Family Medicine
DX: Z12.4 Encounter for screening for malignant neoplasm of cervix (principal)

== ENCOUNTER → 2022-01-15 | Outpatient (CLI) | payer OTHER ==
[2022-01-15 17:42] LABS: BASO # 0.1 10^3/uL (0.0-0.2); BASO % 0.7 % (0.0-1.0); EOS # 0.2 10^3/uL (0.0-0.5); EOS % 2.2 % (0.0-3.0); HEMATOCRIT 43.7 % (36.0-47.0); HEMOGLOBIN 14.3 g/dl (12.0-15.5); LYMPH # 3.2 10^3/uL (1.5-5.0); LYMPH % 36.8 % (24.0-44.0); MEAN CORPUSCULAR HEMOGLOBIN 29.7 pg (27.0-33.0); MEAN CORPUSCULAR HGB CONC 32.7 g/dl (32.0-36.5); MEAN CORPUSCULAR VOLUME 90.9 fl (80.0-96.0); MONO # 0.6 10^3/uL (0.0-0.8); NEUTROPHILS # 4.6 10^3/uL (1.5-8.5); PLATELET COUNT, AUTOMATED 332 10^3/uL (150-450); RED BLOOD COUNT 4.81 10^6/uL (4.00-5.40); WHITE BLOOD COUNT 8.7 10^3/uL (4.0-10.0)
[2022-01-15 17:55] LABS: APPEARANCE, URINE CLEAR (CLEAR); BACTERIA, URINE AUTO NEGATIVE (NEGATIVE); BILIRUBIN, URINE AUTO NEGATIVE (NEGATIVE); BLOOD, URINE BLOOD 1+ (NEGATIVE); COLOR, URINE STRAW (YELLOW); GLUCOSE, URINE (UA) AUTO NEGATIVE (NEGATIVE); KETONE, URINE AUTO NEGATIVE (NEGATIVE); LEUKOCYTE ESTERASE, URINE AUTO NEGATIVE (NEGATIVE); NITRITE, URINE AUTO NEGATIVE (NEGATIVE); PROTEIN, URINE AUTO NEGATIVE (NEGATIVE); RBC, URINE AUTO 1 /HPF (0-3); SPECIFIC GRAVITY URINE AUTO 1.005 (1.002-1.035); SQUAMOUS EPITHELIAL CELL UR AU 2 /HPF (0-6); UROBILINOGEN, URINE AUTO 0.2 mg/dL (0.0-2.0); WBC, URINE AUTO 0 /HPF (0-3)
[2022-01-15 18:35] LABS: ERYTHROCYTE SEDIMENTATION RATE 7 mm/hr (0-20)
[2022-01-15 21:31] LABS: ALBUMIN 3.4 GM/DL (3.2-5.2); ALT/SGPT 22 U/L (12-78); BILIRUBIN,TOTAL 0.4 MG/DL (0.2-1.0); BLOOD UREA NITROGEN 14 MG/DL (7-18); CALCIUM LEVEL 9.6 MG/DL (8.5-10.1); CARBON DIOXIDE LEVEL 25 MEQ/L (21-32); CHLORIDE LEVEL 106 MEQ/L (98-107); CREATININE FOR GFR 0.79 MG/DL (0.55-1.30); GLOMERULAR FILTRATION RATE > 60.0 (>58); GLUCOSE, FASTING 93 MG/DL (70-100); POTASSIUM SERUM 4.6 MEQ/L (3.5-5.1); SODIUM LEVEL 137 MEQ/L (136-145)
[2022-01-15 23:25] LABS: HEMOGLOBIN A1c 5.4 %
== END ==
LOC: M PLALAB 14:30
PROVIDERS: ATTEND Physician Assistant
DX: R05.9 Cough, unspecified (principal)

== ENCOUNTER 2022-01-28 20:03 | Emergency (ER) | payer OTHER ==
[~2022-01-28] VITALS: Ht 162.6 cm; Wt 129.6 kg
[2022-01-29] MEDS ORDERED: XIID5DRO OU (00:36)
[2022-01-29 01:23] LABS: BASO # 0.1 10^3/uL (0.0-0.2); BASO % 0.7 % (0.0-1.0); EOS % 0.2 % (0.0-3.0); HEMATOCRIT 46.7 % (36.0-47.0); HEMOGLOBIN 15.4 g/dl (12.0-15.5); LYMPH # 2.6 10^3/uL (1.5-5.0); LYMPH % 22.4 % (24.0-44.0); MEAN CORPUSCULAR HEMOGLOBIN 29.9 pg (27.0-33.0); MEAN CORPUSCULAR VOLUME 90.7 fl (80.0-96.0); MONO # 0.3 10^3/uL (0.0-0.8); MONO % 2.8 % (2.0-8.0); NEUTROPHILS # 8.4 10^3/uL (1.5-8.5); NEUTROPHILS % 73.5 % (36.0-66.0); PLATELET COUNT, AUTOMATED 389 10^3/uL (150-450); RED BLOOD COUNT 5.15 10^6/uL (4.00-5.40); WHITE BLOOD COUNT 11.4 10^3/uL (4.0-10.0)
[2022-01-29 01:52] LABS: BLOOD UREA NITROGEN 11 MG/DL (7-18); CARBON DIOXIDE LEVEL 26 mmol/L (20-29); CHLORIDE LEVEL 105 MEQ/L (98-107); CREATININE FOR GFR 0.89 MG/DL (0.55-1.30); GLOMERULAR FILTRATION RATE > 60.0 (>58); GLUCOSE, FASTING 105 MG/DL (70-100); POTASSIUM SERUM 4.7 MEQ/L (3.5-5.1); SODIUM LEVEL 137 MEQ/L (136-145)
[2022-01-29 01:53] LABS: CALCIUM LEVEL 9.4 MG/DL (8.5-10.1)
[2022-01-29 04:49] LABS: FREE T4 0.82 NG/DL (0.76-1.46); THYROID STIMULATING HORMONE 0.599 uIU/ML (0.358-3.740)
[2022-01-29 06:01] VITALS: BP 144/90
== END 2022-01-29 06:04 | disposition home or self-care (01) ==
LOC: M ED 20:03
DX: R06.00 Dyspnea, unspecified (principal); R53.83 Other fatigue; I10 Essential (primary) hypertension; M54.50 Low back pain, unspecified; J45.909 Unspecified asthma, uncomplicated; Z87.891 Personal history of nicotine dependence; Z88.2 Allergy status to sulfonamides; Z88.1 Allergy status to other antibiotic agents; Z91.012 Allergy to eggs; Z91.02 Food additives allergy status; Z79.51 Long term (current) use of inhaled steroids; Z79.899 Other long term (current) drug therapy

== ENCOUNTER → 2022-05-29 | Outpatient (REF) | payer OTHER ==
[~2022-05-29] MED LIST changes: +XIID5DRO OU
[2022-05-29 17:47] LABS: APPEARANCE, URINE MANUAL CLEAR (CLEAR); COLOR, URINE MANUAL YELLOW (YELLOW)
[2022-05-29 17:49] LABS: BILIRUBIN, URINE MANUAL NEGATIVE (NEGATIVE); BLOOD URINE MANUAL POSITIVE (NEGATIVE); GLUCOSE, URINE (UA) MANUAL NEGATIVE (NEGATIVE); KETONE, URINE MANUAL NEGATIVE (NEGATIVE); LEUKOCYTE ESTERASE, URINE MAN POSITIVE (NEGATIVE); NITRITE, URINE MANUAL NEGATIVE (NEGATIVE); PROTEIN, URINE MANUAL NEGATIVE (NEGATIVE); SPECIFIC GRAVITY,URINE MANUAL 1.015 (1.002-1.035); UROBILINOGEN, URINE MANUAL NORMAL (NORMAL)
[2022-05-29 18:05] LABS: BACTERIA, URINE SMALL AMOUNT; HYALINE CAST, URINE NONE SEEN /lpf (0-1); MUCUS, URINE SMALL AMOUNT (NEGATIVE); SQUAMOUS EPITHELIAL CELL URINE LARGE AMOUNT /hpf (SMALL AMT); WBC, URINE 20-30 /hpf (0-3)
== END ==
LOC: M SFHCPLAZ 17:30
PROVIDERS: ATTEND Physician Assistant
DX: N39.498 Other specified urinary incontinence (principal)

== ENCOUNTER → 2022-09-19 | Outpatient (CLI) | payer OTHER | LOC: M PLALAB 14:04 | PROVIDERS: ATTEND Physician Assistant | DX: R05.3 Chronic cough (principal) ==

== ENCOUNTER → 2022-10-14 | Outpatient (CLI) | payer OTHER ==
[~2022-10-14] MED LIST changes: +FLUT50SP17 NARES; -FLUTISP NARES
== END ==
LOC: M PLAIMG 14:05
PROVIDERS: ATTEND Physician Assistant
DX: R05.9 Cough, unspecified (principal); R06.02 Shortness of breath

== ENCOUNTER 2024-01-21 20:17 | Emergency (ER) | payer OTHER ==
[~2024-01-21] VITALS: Ht 162.6 cm; Wt 136.4 kg
[~2024-01-21 20:17] MED LIST changes: +CEFD1CAP9 PO; -CEFD300C41 PO; -DIPH-319 PO; +DIPH-429 PO; -FLUT50SP17 NARES; +FLUTISP NARES
[2024-01-21 21:00] LABS: BASO # 0.1 10^3/uL (0.0-0.2); BASO % 0.6 % (0.0-1.0); EOS # 0.2 10^3/uL (0.0-0.5); EOS % 2.8 % (0.0-3.0); HEMATOCRIT 29.5 % (36.0-47.0); LYMPH # 1.2 10^3/uL (1.5-5.0); LYMPH % 15.2 % (24.0-44.0); MEAN CORPUSCULAR HEMOGLOBIN 18.3 pg (27.0-33.0); MEAN CORPUSCULAR HGB CONC 27.1 g/dl (32.0-36.5); MEAN CORPUSCULAR VOLUME 67.4 fl (80.0-96.0); MONO # 0.6 10^3/uL (0.0-0.8); MONO % 8.2 % (2.0-8.0); NEUTROPHILS # 5.7 10^3/uL (1.5-8.5); NEUTROPHILS % 72.9 % (36.0-66.0); PLATELET COUNT, AUTOMATED 354 10^3/uL (150-450); RED BLOOD COUNT 4.38 10^6/uL (4.00-5.40); WHITE BLOOD COUNT 7.8 10^3/uL (4.0-10.0)
[2024-01-21] MEDS: ACETAMINOPHEN TAB 650MG DOSE (2X325MG) PO ONE (21:05)
[2024-01-21 21:28] LABS: ALBUMIN 3.1 G/DL (3.2-5.2); ALKALINE PHOSPHATASE 86 U/L (46-116); ALT/SGPT 13 U/L (7.0-40); AST/SGOT 9 U/L (<34); BILIRUBIN,TOTAL 0.4 MG/DL (0.3-1.2); BLOOD UREA NITROGEN 7 MG/DL (9-23); CALCIUM LEVEL 9.2 MG/DL (8.5-10.1); CARBON DIOXIDE LEVEL 25 MMOL/L (20-31); CHLORIDE LEVEL 105 MMOL/L (98-107); CREATININE FOR GFR 0.81 MG/DL (0.55-1.30); GLOMERULAR FILTRATION RATE > 60.0 (>58); GLUCOSE, FASTING 124 MG/DL (60-100); POTASSIUM SERUM 4.8 MMOL/L (3.5-5.1); SODIUM LEVEL 136 MMOL/L (136-145); TOTAL PROTEIN 6.6 G/DL (5.7-8.2)
[2024-01-21 21:32] LABS: RSV AMPLIFICATION NEGATIVE (NEGATIVE)
[2024-01-21 23:43] VITALS: O2SAT 100
[2024-01-22] MEDS: BENZONATATE 100MG CAPSULE PO ONE (06:54)
[2024-01-22] MEDS: ONDANSETRON 4MG ORAL DISINTEGRATING TAB PO ONE (06:55)
[2024-01-22 07:05] VITALS: TEMP 99.6
[2024-01-22] MEDS ORDERED: FERR325T3 PO (07:53)
[2024-01-22] MEDS ORDERED: ONDA-282 PO (07:53)
[2024-01-22] MEDS ORDERED: BENZ200C70 PO (07:53)
[2024-01-22] MEDS ORDERED: NIRM1TAB14 PO (07:53)
[2024-01-22 08:04] VITALS: BP 131/69
== END 2024-01-22 08:19 | disposition home or self-care (01) ==
LOC: M ED 20:17
DX: U07.1 COVID-19 (principal); D63.8 Anemia in other chronic diseases classified elsewhere; N93.8 Other specified abnormal uterine and vaginal bleeding; G47.33 Obstructive sleep apnea (adult) (pediatric); F32.A Depression, unspecified; K21.9 Gastro-esophageal reflux disease without esophagitis; I10 Essential (primary) hypertension; Z79.52 Long term (current) use of systemic steroids; Z79.811 Long term (current) use of aromatase inhibitors; Z79.83 Long term (current) use of bisphosphonates; Z79.1 Long term (current) use of non-steroidal anti-inflammatories (NSAID); Z79.899 Other long term (current) drug therapy; Z88.1 Allergy status to other antibiotic agents; Z88.2 Allergy status to sulfonamides; Z91.018 Allergy to other foods; Z91.012 Allergy to eggs

== ENCOUNTER 2024-04-16 15:50 | Emergency (ER) | payer OTHER ==
[~2024-04-16] VITALS: Ht 162.6 cm; Wt 133.6 kg
[~2024-04-16 15:50] MED LIST changes: +BENZ200C70 PO; +FERR325T3 PO; +GABA-1172; -GABA-282; +NIRM1TAB14 PO; +ONDA-282 PO
[2024-04-16 16:07] VITALS: TEMP 96.8
[2024-04-16] MEDS: IPRATROPIUM 0.5MG/ALBUTEROL 2.5MG INH SOL UD 3ML (DUONEB) NEB ONE (19:23)
[2024-04-16] MEDS: predniSONE 20 MG TAB PO ONE (19:23)
[2024-04-16] MEDS ORDERED: AZIT-12 PO (20:30)
[2024-04-16 20:42] VITALS: BP 176/80; O2SAT 100
== END 2024-04-16 20:44 | disposition home or self-care (01) ==
LOC: M ED 15:50
DX: J20.9 Acute bronchitis, unspecified (principal); J45.901 Unspecified asthma with (acute) exacerbation; E78.5 Hyperlipidemia, unspecified; I10 Essential (primary) hypertension; F41.9 Anxiety disorder, unspecified; F32.A Depression, unspecified; G47.33 Obstructive sleep apnea (adult) (pediatric); H81.4 Vertigo of central origin; F10.10 Alcohol abuse, uncomplicated; Z88.2 Allergy status to sulfonamides; Z88.1 Allergy status to other antibiotic agents; Z91.012 Allergy to eggs; Z91.018 Allergy to other foods; Z79.52 Long term (current) use of systemic steroids; Z79.811 Long term (current) use of aromatase inhibitors; Z79.899 Other long term (current) drug therapy
CPT/HCPCS: 71046; 87486; 87581; 87633; 87798; 94640; 99283; J7512

== ENCOUNTER → 2024-04-23 | Outpatient (CLI) | payer OTHER ==
[2024-04-23 15:28] LABS: HEMATOCRIT 34.6 % (36.0-47.0); HEMOGLOBIN 9.5 g/dl (12.0-15.5); MEAN CORPUSCULAR HEMOGLOBIN 19.3 pg (27.0-33.0); MEAN CORPUSCULAR HGB CONC 27.5 g/dl (32.0-36.5); MEAN CORPUSCULAR VOLUME 70.2 fl (80.0-96.0); PLATELET COUNT, AUTOMATED 538 10^3/uL (150-450); RED BLOOD COUNT 4.93 10^6/uL (4.00-5.40); WHITE BLOOD COUNT 14.5 10^3/uL (4.0-10.0)
[2024-04-26 13:56] LABS: MUMPS VIRUS IgG ANTIBODY 53.3 AU/mL (>10.99)
== END ==
LOC: M PLALAB 12:36
PROVIDERS: ATTEND Obstetrics & Gynecology
DX: Z12.4 Encounter for screening for malignant neoplasm of cervix (principal); N93.9 Abnormal uterine and vaginal bleeding, unspecified; Z76.89 Persons encountering health services in other specified circumstances

== ENCOUNTER → 2024-05-25 | Outpatient (CLI) | payer OTHER ==
[~2024-05-25] MED LIST changes: -CYCL5TAB; +CYCL5TAB4
== END ==
LOC: M WHC 10:56
PROVIDERS: ATTEND Obstetrics & Gynecology
DX: N93.9 Abnormal uterine and vaginal bleeding, unspecified (principal)

== ENCOUNTER → 2024-06-21 | Outpatient (REF) | payer OTHER ==
[~2024-06-21] MED LIST changes: -FEXO-117; +FEXO-193
[2024-06-21 18:55] LABS: BASO # 0.1 10^3/uL (0.0-0.2); EOS # 0.4 10^3/uL (0.0-0.5); EOS % 4.2 % (0.0-3.0); HEMATOCRIT 35.1 % (36.0-47.0); HEMOGLOBIN 9.6 g/dl (12.0-15.5); LYMPH # 4.1 10^3/uL (1.5-5.0); LYMPH % 43.9 % (24.0-44.0); MEAN CORPUSCULAR HEMOGLOBIN 19.6 pg (27.0-33.0); MEAN CORPUSCULAR HGB CONC 27.4 g/dl (32.0-36.5); MEAN CORPUSCULAR VOLUME 71.8 fl (80.0-96.0); MONO # 0.6 10^3/uL (0.0-0.8); MONO % 6.7 % (2.0-8.0); NEUTROPHILS # 4.1 10^3/uL (1.5-8.5); PLATELET COUNT, AUTOMATED 508 10^3/uL (150-450); RED BLOOD COUNT 4.89 10^6/uL (4.00-5.40); WHITE BLOOD COUNT 9.4 10^3/uL (4.0-10.0)
[2024-06-21 19:25] LABS: PERCENT SATURATION 4.5 % (13.2-45.0)
[2024-06-21 19:27] LABS: FERRITIN 3.6 NG/ML (7.3-270.7)
== END ==
LOC: M LAB REF 16:14
PROVIDERS: ATTEND Physician Assistant
DX: D50.9 Iron deficiency anemia, unspecified (principal); N92.0 Excessive and frequent menstruation with regular cycle

== ENCOUNTER → 2024-08-30 | Outpatient (REF) | payer OTHER ==
[2024-08-30 18:15] LABS: BASO # 0.1 10^3/uL (0.0-0.2); BASO % 0.9 % (0.0-1.0); EOS # 0.3 10^3/uL (0.0-0.5); EOS % 3.3 % (0.0-3.0); HEMATOCRIT 33.8 % (36.0-47.0); HEMOGLOBIN 9.4 g/dl (12.0-15.5); LYMPH # 3.6 10^3/uL (1.5-5.0); LYMPH % 35.4 % (24.0-44.0); MEAN CORPUSCULAR HEMOGLOBIN 20.7 pg (27.0-33.0); MEAN CORPUSCULAR HGB CONC 27.8 g/dl (32.0-36.5); MEAN CORPUSCULAR VOLUME 74.4 fl (80.0-96.0); MONO # 0.5 10^3/uL (0.0-0.8); MONO % 4.7 % (2.0-8.0); NEUTROPHILS # 5.7 10^3/uL (1.5-8.5); NEUTROPHILS % 55.4 % (36.0-66.0); PLATELET COUNT, AUTOMATED 545 10^3/uL (150-450); RED BLOOD COUNT 4.54 10^6/uL (4.00-5.40); WHITE BLOOD COUNT 10.2 10^3/uL (4.0-10.0)
[2024-08-30 18:22] LABS: PERCENT SATURATION 3.8 % (13.2-45.0)
[2024-08-30 18:23] LABS: FERRITIN 4.5 NG/ML (7.3-270.7)
== END ==
LOC: M LAB REF 16:20
PROVIDERS: ATTEND Physician Assistant
DX: D50.9 Iron deficiency anemia, unspecified (principal); N92.0 Excessive and frequent menstruation with regular cycle